=== PATIENT | male | born 1955 | race African-American/Black ===

== ENCOUNTER 2017-05-23 08:14 | Inpatient (IN) | payer MEDICARE, OTHER ==
[~2017-05-23] VITALS: Ht 167.6 cm; Wt 91.6 kg
[~2017-05-23 08:14] MED LIST: ACET-3161 PO; ALBUTEROL; ATEN50TA PO; Amiodarone PO; CLOP75TA2 PO; DIGO125T82 PO; FLUT1DIS3 IH; FURO80TA3 PO; HYDR25TA PO; IBUP-1510 PO; IPATROPIUM; Isosorbide PO; LEVO500T15 PO; LISI-604 PO; METO5TAB69 PO; OMEP20TA80 PO; P20 PO; PENT400T2 PO; Potassium PO; Proair HFA INH; SIMV40TA5 PO; SPIR25TA4 PO; TRAM50TA3 PO; ZOLP10TA2 PO; [UNRECOGNIZED DRUG - OTHER]; [UNRECOGNIZED DRUG - OTHER] NEB
[2017-05-23 13:59] VITALS: BP 92/55
[2017-05-23] MEDS ORDERED: ELIQUIS PO (14:07)
[2017-05-23] MEDS ORDERED: BREO (14:07)
[2017-05-23] MEDS ORDERED: [UNRECOGNIZED DRUG - OTHER] INH (14:07)
[2017-05-23] MEDS ORDERED: RANI150T7 PO (14:07)
[2017-05-23] MEDS ORDERED: ALLO300T2 PO (14:07)
[2017-05-23] MEDS ORDERED: METO-298 PO (14:07)
[2017-05-23 14:17] VITALS: BP 92/55
[2017-05-23] MEDS ORDERED: SODIUM CHLORIDE 0.9% 250 ML IV ONE (14:45)
[2017-05-23] MEDS ORDERED: UMEC62.5 IH (15:11)
[2017-05-23] MEDS ORDERED: [UNRECOGNIZED DRUG - OTHER] PO (15:11)
[2017-05-23] MEDS ORDERED: isosorbide dinitrate PO (15:11)
[2017-05-23] MEDS ORDERED: BREO INH (15:11)
[2017-05-23] MEDS: PENTOXIFYLLINE 400MG TABLET PO SCH (16:26)
[2017-05-23] MEDS: TRAMADOL 50MG TABLET PO PRN ×2 (16:28→21:10)
[2017-05-23] MEDS: APIXABAN 5 MG TABLET PO SCH (16:28)
[2017-05-23 16:45] VITALS: BP 90/53
[2017-05-23] MEDS ORDERED: ELIQUIS 5 MG PO SCH (17:00)
[2017-05-23] MEDS ORDERED: MEDICATION NOT ON FORMULARY EA (Ranitidine Hcl 1 TAB) PO SCH (17:00)
[2017-05-23] MEDS: DIGOXIN 125MCG TABLET PO SCH (17:06)
[2017-05-23 17:48] LABS: BASOPHILS % 0.6 % (0.0-2.0); EOSINOPHILS % 2.5 % (0.0-5.0); HEMATOCRIT. 42.1 % (42.0-52.0); HEMOGLOBIN. 13.2 g/dL (14.0-18.0); LYMPHOCYTES % 25.3 % (20.0-50.0); MEAN CORPUSCULAR HEMOGLOBIN 22.5 pg (28.0-32.0); MEAN CORPUSCULAR VOLUME 71.8 fL (80.0-94.0); MONOCYTES % 13.8 % (2.0-8.0); NEUTROPHILS % 57.8 % (40.0-76.0); PLATELET 134 x1000/uL (130-400); RED BLOOD CELL COUNT 5.87 mill/uL (4.7-6.1); RED CELL DISTRIBUTION WIDTH 17.7 % (11.6-14.6)
[2017-05-23 19:39] VITALS: BP 91/53
[2017-05-23] MEDS: FAMOTIDINE 20MG TABLET PO SCH (21:10)
[2017-05-24] VITALS (7 sets, daily range): BP systolic 88–108; BP diastolic 50–69
[2017-05-24] MEDS: TRAMADOL 50MG TABLET PO PRN ×3 (04:08→18:02)
[2017-05-24 06:20] LABS: HEMATOCRIT. 42.4 % (42.0-52.0); HEMOGLOBIN. 13.3 g/dL (14.0-18.0); MEAN CORPUSCULAR HEMOGLOBIN 22.8 pg (28.0-32.0); MEAN CORPUSCULAR VOLUME 72.7 fL (80.0-94.0); MEAN PLATELET VOLUME 10.5 fl (7.4-10.4); PLATELET 143 x1000/uL (130-400); RED BLOOD CELL COUNT 5.84 mill/uL (4.7-6.1)
[2017-05-24 06:48] LABS: CHLORIDE 91 mEq/L (98-107)
[2017-05-24 06:54] LABS: CARBON DIOXIDE 31 mEq/L (21-32); PHOSPHORUS 3.6 mg/dL (2.5-4.9)
[2017-05-24] MEDS: METOPROLOL TARTRATE 25MG TABLET PO SCH ×2 (08:09→21:00)
[2017-05-24] MEDS: SPIRONOLACTONE 25MG TABLET PO SCH (08:09)
[2017-05-24] MEDS ORDERED: MEDICATION NOT ON FORMULARY EA (Metoprolol Succinate 1 TAB) PO SCH (09:00)
[2017-05-24] MEDS ORDERED: BREO INH SCH (09:00)
[2017-05-24] MEDS ORDERED: ALLOPURINOL 300 MG TABLET PO SCH (09:00)
[2017-05-24] MEDS ORDERED: ELIQUIS 5 MG PO SCH (09:00)
[2017-05-24] MEDS: PENTOXIFYLLINE 400MG TABLET PO SCH ×3 (10:05→18:00)
[2017-05-24] MEDS: FLUTICASONE/VILANTEROL 200-25 BLST.W.DEV ORI SCH (10:05)
[2017-05-24] MEDS: CLOPIDOGREL 75MG TABLET PO SCH (10:06)
[2017-05-24] MEDS: APIXABAN 5 MG TABLET PO SCH ×2 (10:07→18:02)
[2017-05-24] MEDS: ONDANSETRON HCL 4MG/2ML VIAL IV PRN (14:52)
[2017-05-24] MEDS: MECLIZINE 25MG TABLET PO PRN (14:52)
[2017-05-24 16:38] LABS: NUCLEATED RED BLOOD CELLS 1 /100 WBC; PLATELET ESTIMATE NORMAL
[2017-05-24] MEDS: DIGOXIN 125MCG TABLET PO SCH (18:00)
[2017-05-24] MEDS: FAMOTIDINE 20MG TABLET PO SCH (21:20)
[2017-05-25] VITALS (7 sets, daily range): BP systolic 95–117; BP diastolic 47–78
[2017-05-25] MEDS: TRAMADOL 50MG TABLET PO PRN ×3 (00:57→12:54)
[2017-05-25 07:04] LABS: HEMATOCRIT. 41.1 % (42.0-52.0); HEMOGLOBIN. 12.9 g/dL (14.0-18.0); MEAN CORPUSCULAR HEMOGLOBIN 22.6 pg (28.0-32.0); RED CELL DISTRIBUTION WIDTH 17.5 % (11.6-14.6)
[2017-05-25] MEDS: METOPROLOL TARTRATE 25MG TABLET PO SCH ×2 (09:00→21:20)
[2017-05-25] MEDS: SPIRONOLACTONE 25MG TABLET PO SCH (09:00)
[2017-05-25] MEDS: FLUTICASONE/VILANTEROL 200-25 BLST.W.DEV ORI SCH (09:36)
[2017-05-25] MEDS: ALLOPURINOL 300 MG TABLET PO SCH (09:37)
[2017-05-25] MEDS: APIXABAN 5 MG TABLET PO SCH ×2 (09:37→17:15)
[2017-05-25] MEDS: PENTOXIFYLLINE 400MG TABLET PO SCH ×3 (09:37→17:15)
[2017-05-25] MEDS: CLOPIDOGREL 75MG TABLET PO SCH (09:38)
[2017-05-25 14:18] LABS: MEAN PLATELET VOLUME 10.9 fl (7.4-10.4); PLATELET 143 x1000/uL (130-400)
[2017-05-25] MEDS: ONDANSETRON HCL 4MG/2ML VIAL IV PRN (14:40)
[2017-05-25] MEDS: MECLIZINE 25MG TABLET PO PRN (14:40)
[2017-05-25] MEDS: DIGOXIN 125MCG TABLET PO SCH (17:15)
[2017-05-25] MEDS: FAMOTIDINE 20MG TABLET PO SCH (21:19)
[2017-05-26] VITALS: BP 112/72
[2017-05-26 04:00] VITALS: BP 114/69
[2017-05-26 06:14] LABS: HEMATOCRIT. 39.1 % (42.0-52.0); HEMOGLOBIN. 12.2 g/dL (14.0-18.0); MEAN CORPUSCULAR HEMOGLOBIN 22.7 pg (28.0-32.0); MEAN CORPUSCULAR VOLUME 72.6 fL (80.0-94.0); RED BLOOD CELL COUNT 5.38 mill/uL (4.7-6.1); RED CELL DISTRIBUTION WIDTH 17.9 % (11.6-14.6)
[2017-05-26 08:00] VITALS: BP 101/55
[2017-05-26] MEDS: CLOPIDOGREL 75MG TABLET PO SCH (08:22)
[2017-05-26] MEDS: TRAMADOL 50MG TABLET PO PRN ×3 (08:22→22:50)
[2017-05-26] MEDS: ALLOPURINOL 300 MG TABLET PO SCH (08:22)
[2017-05-26] MEDS: FLUTICASONE/VILANTEROL 200-25 BLST.W.DEV ORI SCH (08:23)
[2017-05-26] MEDS: PENTOXIFYLLINE 400MG TABLET PO SCH ×3 (08:23→17:12)
[2017-05-26] MEDS: SPIRONOLACTONE 25MG TABLET PO SCH ×2 (08:23→13:41)
[2017-05-26] MEDS: APIXABAN 5 MG TABLET PO SCH ×2 (08:23→17:12)
[2017-05-26] MEDS: METOPROLOL TARTRATE 25MG TABLET PO SCH ×2 (08:24→21:00)
[2017-05-26 11:05] LABS: PLATELET ESTIMATE SLIGHTLY DECREASED
[2017-05-26 11:06] LABS: MEAN PLATELET VOLUME 10.7 fl (7.4-10.4); PLATELET 120 x1000/uL (130-400)
[2017-05-26 12:00] VITALS: BP 108/68
[2017-05-26 16:00] VITALS: BP 102/55
[2017-05-26] MEDS: DIGOXIN 125MCG TABLET PO SCH (17:12)
[2017-05-26 20:00] VITALS: BP 134/71
[2017-05-26] MEDS: FAMOTIDINE 20MG TABLET PO SCH (21:03)
[2017-05-27] VITALS: BP 116/60
[2017-05-27 04:00] VITALS: BP 137/67
[2017-05-27] MEDS: TRAMADOL 50MG TABLET PO PRN ×2 (06:03→23:39)
[2017-05-27 07:28] LABS: HEMOGLOBIN. 11.6 g/dL (14.0-18.0); MEAN CORPUSCULAR HEMOGLOBIN 22.6 pg (28.0-32.0); MEAN CORPUSCULAR VOLUME 71.8 fL (80.0-94.0); MEAN PLATELET VOLUME 11.3 fl (7.4-10.4); PLATELET 116 x1000/uL (130-400); RED BLOOD CELL COUNT 5.15 mill/uL (4.7-6.1)
[2017-05-27 08:00] VITALS: BP 117/76
[2017-05-27] MEDS: SPIRONOLACTONE 25MG TABLET PO SCH (08:49)
[2017-05-27] MEDS: FAMOTIDINE 20MG TABLET PO SCH ×2 (08:49→21:41)
[2017-05-27] MEDS: FLUTICASONE/VILANTEROL 200-25 BLST.W.DEV ORI SCH (08:49)
[2017-05-27] MEDS: APIXABAN 5 MG TABLET PO SCH ×2 (08:49→17:58)
[2017-05-27] MEDS: ALLOPURINOL 300 MG TABLET PO SCH (08:49)
[2017-05-27] MEDS: PENTOXIFYLLINE 400MG TABLET PO SCH ×3 (08:50→17:58)
[2017-05-27] MEDS: METOPROLOL TARTRATE 25MG TABLET PO SCH ×2 (08:50→21:00)
[2017-05-27] MEDS: CLOPIDOGREL 75MG TABLET PO SCH (08:50)
[2017-05-27 12:00] VITALS: BP 96/54
[2017-05-27 13:16] LABS: PLATELET ESTIMATE DECREASED
[2017-05-27 16:00] VITALS: BP 112/66
[2017-05-27] MEDS: DIGOXIN 125MCG TABLET PO SCH (17:58)
[2017-05-27] MEDS ORDERED: UMECLIDINIUM BROMIDE 1 INH BLST.W.DEV IH SCH (18:30)
[2017-05-27 20:00] VITALS: BP 105/64
[2017-05-28] VITALS: BP 135/98
[2017-05-28 04:00] VITALS: BP 112/80
[2017-05-28 07:43] VITALS: BP 115/71
[2017-05-28] MEDS: IPRATROPIUM BROMIDE (0.02%) 0.5MG/2.5ML NEB HHN SCH ×4 (07:52→20:33)
[2017-05-28] MEDS: FAMOTIDINE 20MG TABLET PO SCH (09:44)
[2017-05-28] MEDS: PENTOXIFYLLINE 400MG TABLET PO SCH ×3 (09:44→18:26)
[2017-05-28] MEDS: SPIRONOLACTONE 25MG TABLET PO SCH (09:44)
[2017-05-28] MEDS: CLOPIDOGREL 75MG TABLET PO SCH (09:44)
[2017-05-28] MEDS: APIXABAN 5 MG TABLET PO SCH ×2 (09:44→18:27)
[2017-05-28] MEDS: ALLOPURINOL 300 MG TABLET PO SCH (09:45)
[2017-05-28] MEDS: METOPROLOL TARTRATE 25MG TABLET PO SCH (09:52)
[2017-05-28] MEDS: TRAMADOL 50MG TABLET PO PRN ×2 (09:54→15:24)
[2017-05-28 12:00] VITALS: BP 118/81
[2017-05-28 16:40] LABS: HEMATOCRIT. 37.1 % (42.0-52.0); HEMOGLOBIN. 11.7 g/dL (14.0-18.0); MEAN CORPUSCULAR HEMOGLOBIN 22.6 pg (28.0-32.0); MEAN CORPUSCULAR VOLUME 71.5 fL (80.0-94.0); MEAN PLATELET VOLUME 11.8 fl (7.4-10.4); PLATELET 116 x1000/uL (130-400); RED CELL DISTRIBUTION WIDTH 17.9 % (11.6-14.6)
[2017-05-28] MEDS: FLUTICASONE/VILANTEROL 200-25 BLST.W.DEV ORI SCH (17:04)
[2017-05-28 17:05] LABS: PLATELET ESTIMATE DECREASED
[2017-05-28] MEDS: DIGOXIN 125MCG TABLET PO SCH (18:26)
[2017-05-28 19:56] VITALS: BP 114/64
[2017-05-28] MEDS ORDERED: ASPI-1159 PO (20:38)
[2017-05-28] MEDS ORDERED: LIP40 PO (20:38)
[2017-05-28 20:39] VITALS: BP 114/64
[2017-05-29] MEDS ORDERED: ALLOPURINOL 300 MG TABLET PO SCH (09:00)
== END 2017-05-28 21:40 | disposition home or self-care (01) | DRG 683 ==
LOC: CCL 08:14 → 6WST 08:15
PROVIDERS: ADMIT Specialist; ATTEND Specialist
DX: N17.9 Acute kidney failure, unspecified (principal); I13.0 Hypertensive heart and chronic kidney disease with heart failure and stage 1 through stage 4 chronic kidney disease, or unspecified chronic kidney disease; I48.92 Unspecified atrial flutter; I50.22 Chronic systolic (congestive) heart failure; I73.9 Peripheral vascular disease, unspecified; D17.9 Benign lipomatous neoplasm, unspecified; E04.2 Nontoxic multinodular goiter; E78.5 Hyperlipidemia, unspecified; G47.33 Obstructive sleep apnea (adult) (pediatric); I25.10 Atherosclerotic heart disease of native coronary artery without angina pectoris; I25.5 Ischemic cardiomyopathy; I48.0 Paroxysmal atrial fibrillation; K40.90 Unilateral inguinal hernia, without obstruction or gangrene, not specified as recurrent; M10.9 Gout, unspecified; M19.90 Unspecified osteoarthritis, unspecified site; M47.812 Spondylosis without myelopathy or radiculopathy, cervical region; M47.816 Spondylosis without myelopathy or radiculopathy, lumbar region; M54.30 Sciatica, unspecified side; N18.3 Chronic kidney disease, stage 3 (moderate); N43.3 Hydrocele, unspecified; Z53.9 Procedure and treatment not carried out, unspecified reason; Z79.01 Long term (current) use of anticoagulants; I25.2 Old myocardial infarction; Z79.02 Long term (current) use of antithrombotics/antiplatelets; Z79.82 Long term (current) use of aspirin; Z79.899 Other long term (current) drug therapy; Z87.891 Personal history of nicotine dependence; Z95.5 Presence of coronary angioplasty implant and graft; Z95.810 Presence of automatic (implantable) cardiac defibrillator; Z98.62 Peripheral vascular angioplasty status; J44.9 Chronic obstructive pulmonary disease, unspecified
CPT/HCPCS: 36415; 80048; 80053; 82570; 83735; 83935; 84100; 84300; 84550; 85025; 93306; J2405; J7050; J8597

== ENCOUNTER 2018-05-01 15:47 | Inpatient (IN) | payer MEDICARE, OTHER ==
[2018-05-01] VITALS (7 sets, daily range): BP systolic 102–127; BP diastolic 60–85
[~2018-05-01] VITALS: Ht 167.6 cm; Wt 98.0 kg
[~2018-05-01 15:47] MED LIST changes: -ACET-3161 PO; -ALBUTEROL; +ALLO300T2 PO; +ASPI-1159 PO; -ATEN50TA PO; -Amiodarone PO; +BREO INH; +CLOP75TA16 PO; -CLOP75TA2 PO; +ELIQUIS PO; -FLUT1DIS3 IH; -FURO80TA3 PO; -HYDR25TA PO; -IBUP-1510 PO; -IPATROPIUM; -Isosorbide PO; -LEVO500T15 PO; +LIP40 PO; -LISI-604 PO; -METO5TAB69 PO; -OMEP20TA80 PO; -P20 PO; +PENT400T11 PO; -PENT400T2 PO; -Potassium PO; -Proair HFA INH; +RANI150T7 PO; -SIMV40TA5 PO; -SPIR25TA4 PO; +SPIR25TA6 PO; +UMEC62.5 IH; -ZOLP10TA2 PO; -[UNRECOGNIZED DRUG - OTHER]; -[UNRECOGNIZED DRUG - OTHER] NEB; +[UNRECOGNIZED DRUG - OTHER] PO
[2018-05-01 16:57] LABS: BG CARBOXYHEMOGLOBIN 1.2 % (0.5-1.5); BG DEOXYHEMOGLOBIN 3.1 % (0.0-5.0); BG HCO3 ACT 27.6 mmol/L (22.0-26.0); BG METHEMOGLOBIN 0.1 % (0.0-1.5); BG OXYGEN SATURATION 96.9 % (92.0-98.5); BG OXYHEMOGLOBIN 95.6 % (94.0-97.0); BG PCO2 37.6 mmHg (35.0-45.0); BG PH 7.483 (7.350-7.450); BG PO2 86.9 mmHg (75.0-100.0); BG SAMPLE SITE RIGHT RADIAL; BG TOTAL HEMOGLOBIN 10.7 g/dL (12.0-18.0); BG VENT MODE ROOM AIR
[2018-05-01] MEDS ORDERED: DOBUTAMINE 250MG PREMIX 250 ML IV PRN (17:00)
[2018-05-01] MEDS ORDERED: FUROSEMIDE 100MG/10ML VIAL IVP NR (17:00)
[2018-05-01] MEDS: DIGOXIN 125MCG TABLET PO SCH (18:10)
[2018-05-01] MEDS: SPIRONOLACTONE 25MG TABLET PO SCH (18:10)
[2018-05-01] MEDS: TRAMADOL 50MG TABLET PO PRN ×2 (18:11→23:58)
[2018-05-01] MEDS: AMIODARONE HCL 200 MG TABLET PO SCH (18:11)
[2018-05-01] MEDS: DOBUTAMINE HCL 250 MG in DEXT 5% WATER 230 ML IV SCH (18:21)
[2018-05-01 18:24] LABS: HEMATOCRIT. 31.9 % (42.0-52.0); HEMOGLOBIN. 9.8 g/dL (14.0-18.0); MEAN CORPUSCULAR VOLUME 68.6 fL (80.0-94.0); MEAN PLATELET VOLUME 9.1 fl (7.4-10.4); PLATELET 172 x1000/uL (130-400); RED BLOOD CELL COUNT 4.65 mill/uL (4.7-6.1); RED CELL DISTRIBUTION WIDTH 22.1 % (11.6-14.6)
[2018-05-01 18:25] LABS: CHLORIDE 97 mEq/L (98-107)
[2018-05-01 18:51] LABS: PLATELET ESTIMATE NORMAL
[2018-05-01] MEDS ORDERED: FUROSEMIDE 80MG TABLET PO SCH (20:00)
[2018-05-01] MEDS: FAMOTIDINE 20MG TABLET PO SCH (20:12)
[2018-05-01] MEDS: ATORVASTATIN CALCIUM 40MG TABLET PO SCH (20:12)
[2018-05-01] MEDS ORDERED: VALSARTAN PO SCH (21:00)
[2018-05-01] MEDS ORDERED: SACUBITRIL PO SCH (21:00)
[2018-05-01] MEDS: HYDROCODONE/ACETAMINOPHEN 10/325MG TABLET PO PRN (21:03)
[2018-05-01] MEDS: FLUTICASONE/VILANTEROL 200-25 BLST.W.DEV ORI SCH (21:14)
[2018-05-01] MEDS: UMECLIDINIUM BROMIDE 1 INH BLST.W.DEV IH SCH (21:14)
[2018-05-01] MEDS: METOPROLOL TARTRATE 50MG TABLET PO SCH (21:24)
[2018-05-01] MEDS: CYCLOBENZAPRINE 10MG TABLET PO PRN (22:48)
[2018-05-01] MEDS: DIPHENHYDRAMINE 50MG/ML VIAL IV PRN (23:39)
[2018-05-02] VITALS (16 sets, daily range): BP systolic 97–114; BP diastolic 47–80
[2018-05-02] MEDS: DOBUTAMINE HCL 250 MG in DEXT 5% WATER 230 ML IV SCH ×2 (05:07→18:40)
[2018-05-02] MEDS: METOPROLOL TARTRATE 50MG TABLET PO SCH ×3 (05:57→21:34)
[2018-05-02 07:08] LABS: HEMOGLOBIN. 9.3 g/dL (14.0-18.0); MEAN CORPUSCULAR HEMOGLOBIN 21.2 pg (28.0-32.0); MEAN CORPUSCULAR VOLUME 68.6 fL (80.0-94.0); MEAN PLATELET VOLUME 9.1 fl (7.4-10.4); PLATELET 154 x1000/uL (130-400); RED BLOOD CELL COUNT 4.38 mill/uL (4.7-6.1); RED CELL DISTRIBUTION WIDTH 21.8 % (11.6-14.6)
[2018-05-02] MEDS: APIXABAN 5 MG TABLET PO SCH ×2 (08:14→20:18)
[2018-05-02] MEDS: AMIODARONE HCL 200 MG TABLET PO SCH (08:15)
[2018-05-02] MEDS: ASPIRIN 81MG TABLET PO SCH (08:15)
[2018-05-02] MEDS: FAMOTIDINE 20MG TABLET PO SCH (08:16)
[2018-05-02] MEDS: FUROSEMIDE 100MG/10ML VIAL IV SCH ×2 (08:16→17:10)
[2018-05-02] MEDS: FLUTICASONE/VILANTEROL 200-25 BLST.W.DEV ORI SCH ×2 (08:17→09:00)
[2018-05-02] MEDS: UMECLIDINIUM BROMIDE 1 INH BLST.W.DEV IH SCH ×2 (08:17→09:00)
[2018-05-02] MEDS: CYCLOBENZAPRINE 10MG TABLET PO PRN (08:22)
[2018-05-02] MEDS ORDERED: FUROSEMIDE 80MG TABLET PO SCH (09:00)
[2018-05-02] MEDS ORDERED: ALLOPURINOL 100 MG TABLET PO SCH (09:00)
[2018-05-02] MEDS: DIPHENHYDRAMINE 50MG/ML VIAL IV PRN (09:43)
[2018-05-02] MEDS: SPIRONOLACTONE 25MG TABLET PO SCH (11:32)
[2018-05-02] MEDS: HYDROCODONE/ACETAMINOPHEN 10/325MG TABLET PO PRN ×2 (11:32→20:18)
[2018-05-02] MEDS: DIGOXIN 125MCG TABLET PO SCH (17:10)
[2018-05-02] MEDS: GUAIFENESIN-DM 200MG-20MG/10ML UDC PO PRN ×2 (17:10→21:08)
[2018-05-02] MEDS: ATORVASTATIN CALCIUM 40MG TABLET PO SCH (20:19)
[2018-05-02] MEDS: ENTRESTO 49MG/51MG PO SCH (20:19)
[2018-05-02] MEDS: TEMAZEPAM 15MG CAPSULE PO PRN (23:43)
[2018-05-03] VITALS (13 sets, daily range): BP systolic 85–104; BP diastolic 35–65
[2018-05-03] MEDS: METOPROLOL TARTRATE 50MG TABLET PO SCH ×3 (06:00→21:24)
[2018-05-03] MEDS: FUROSEMIDE 100MG/10ML VIAL IV SCH ×2 (06:04→17:19)
[2018-05-03] MEDS: DOBUTAMINE HCL 250 MG in DEXT 5% WATER 230 ML IV SCH ×2 (06:08→19:44)
[2018-05-03 06:59] LABS: HEMATOCRIT. 28.9 % (42.0-52.0); MEAN CORPUSCULAR HEMOGLOBIN 21.5 pg (28.0-32.0); MEAN CORPUSCULAR VOLUME 68.9 fL (80.0-94.0); MEAN PLATELET VOLUME 8.9 fl (7.4-10.4); PLATELET 146 x1000/uL (130-400); RED CELL DISTRIBUTION WIDTH 21.4 % (11.6-14.6)
[2018-05-03 07:16] LABS: PLATELET ESTIMATE NORMAL
[2018-05-03] MEDS: FLUTICASONE/VILANTEROL 200-25 BLST.W.DEV ORI SCH (08:13)
[2018-05-03] MEDS: UMECLIDINIUM BROMIDE 1 INH BLST.W.DEV IH SCH (08:14)
[2018-05-03] MEDS: APIXABAN 5 MG TABLET PO SCH ×2 (08:15→20:22)
[2018-05-03] MEDS: FAMOTIDINE 20MG TABLET PO SCH (08:15)
[2018-05-03] MEDS: AMIODARONE HCL 200 MG TABLET PO SCH (08:15)
[2018-05-03] MEDS: ASPIRIN 81MG TABLET PO SCH (08:16)
[2018-05-03] MEDS: ALLOPURINOL 100 MG TABLET PO SCH (08:16)
[2018-05-03] MEDS: ENTRESTO 49MG/51MG PO SCH ×2 (08:18→20:22)
[2018-05-03 08:49] LABS: PLATELET ESTIMATE NORMAL
[2018-05-03] MEDS: SPIRONOLACTONE 25MG TABLET PO SCH ×2 (09:00→11:10)
[2018-05-03] MEDS: HYDROCODONE/ACETAMINOPHEN 10/325MG TABLET PO PRN ×2 (12:01→21:18)
[2018-05-03] MEDS: GUAIFENESIN-DM 200MG-20MG/10ML UDC PO PRN ×2 (12:02→19:43)
[2018-05-03] MEDS: ALBUTEROL (0.083%) 2.5MG/3ML NEB HHN PRN ×2 (13:23→20:35)
[2018-05-03] MEDS: DIGOXIN 125MCG TABLET PO SCH (17:19)
[2018-05-03] MEDS: TRAMADOL 50MG TABLET PO PRN (19:53)
[2018-05-03] MEDS: ATORVASTATIN CALCIUM 40MG TABLET PO SCH (20:22)
[2018-05-03] MEDS: CYCLOBENZAPRINE 10MG TABLET PO PRN (20:22)
[2018-05-03] MEDS: TEMAZEPAM 15MG CAPSULE PO PRN (23:01)
[2018-05-04] VITALS (13 sets, daily range): BP systolic 75–107; BP diastolic 39–68
[2018-05-04] MEDS: FUROSEMIDE 100MG/10ML VIAL IV SCH (05:49)
[2018-05-04] MEDS: DOBUTAMINE HCL 250 MG in DEXT 5% WATER 230 ML IV SCH ×2 (05:49→20:09)
[2018-05-04] MEDS: GUAIFENESIN-DM 200MG-20MG/10ML UDC PO PRN ×2 (05:49→20:03)
[2018-05-04] MEDS: METOPROLOL TARTRATE 50MG TABLET PO SCH ×3 (05:56→21:27)
[2018-05-04 06:09] LABS: HEMOGLOBIN. 9.2 g/dL (14.0-18.0); MEAN CORPUSCULAR HEMOGLOBIN 21.2 pg (28.0-32.0); MEAN PLATELET VOLUME 9.6 fl (7.4-10.4); PLATELET 156 x1000/uL (130-400); RED BLOOD CELL COUNT 4.34 mill/uL (4.7-6.1)
[2018-05-04] MEDS: ENTRESTO 49MG/51MG PO SCH ×2 (08:20→20:03)
[2018-05-04] MEDS: UMECLIDINIUM BROMIDE 1 INH BLST.W.DEV IH SCH (08:21)
[2018-05-04] MEDS: FLUTICASONE/VILANTEROL 200-25 BLST.W.DEV ORI SCH (08:21)
[2018-05-04] MEDS: ASPIRIN 81MG TABLET PO SCH (08:21)
[2018-05-04] MEDS: FAMOTIDINE 20MG TABLET PO SCH (08:22)
[2018-05-04] MEDS: AMIODARONE HCL 200 MG TABLET PO SCH (08:22)
[2018-05-04] MEDS: ALLOPURINOL 100 MG TABLET PO SCH (08:22)
[2018-05-04] MEDS: APIXABAN 5 MG TABLET PO SCH ×2 (08:22→20:03)
[2018-05-04 08:48] LABS: PLATELET ESTIMATE NORMAL
[2018-05-04] MEDS: SPIRONOLACTONE 25MG TABLET PO SCH (09:00)
[2018-05-04 09:07] LABS: MICROALBUMIN RANDOM URINE 3.5 ug/mL (Not Estab.)
[2018-05-04] MEDS: TRAMADOL 50MG TABLET PO PRN (09:21)
[2018-05-04] MEDS: HYDROCODONE/ACETAMINOPHEN 10/325MG TABLET PO PRN (13:47)
[2018-05-04] MEDS ORDERED: SODIUM CHLORIDE 0.9% 250 ML IV ONE (15:00)
[2018-05-04] MEDS ORDERED: HYDROMORPHONE HCL/PF 2MG/ML CPJ IV PRN (15:30)
[2018-05-04] MEDS ORDERED: HYDROMORPHONE HCL 4MG TABLET PO PRN (16:15)
[2018-05-04] MEDS: DIGOXIN 125MCG TABLET PO SCH (18:09)
[2018-05-04] MEDS: CYCLOBENZAPRINE 10MG TABLET PO PRN (20:03)
[2018-05-04] MEDS: ATORVASTATIN CALCIUM 40MG TABLET PO SCH (20:03)
[2018-05-04] MEDS: TEMAZEPAM 15MG CAPSULE PO PRN (21:46)
[2018-05-05] VITALS (12 sets, daily range): BP systolic 83–109; BP diastolic 38–57
[2018-05-05] MEDS: ALBUTEROL (0.083%) 2.5MG/3ML NEB HHN PRN ×4 (00:31→16:20)
[2018-05-05] MEDS: METOPROLOL TARTRATE 50MG TABLET PO SCH ×3 (06:00→21:01)
[2018-05-05 06:19] LABS: HEMATOCRIT. 29.9 % (42.0-52.0); HEMOGLOBIN. 9.2 g/dL (14.0-18.0); MEAN CORPUSCULAR HEMOGLOBIN 21.3 pg (28.0-32.0); MEAN CORPUSCULAR VOLUME 69.1 fL (80.0-94.0); MEAN PLATELET VOLUME 9.1 fl (7.4-10.4); PLATELET 162 x1000/uL (130-400); RED BLOOD CELL COUNT 4.33 mill/uL (4.7-6.1); RED CELL DISTRIBUTION WIDTH 22.4 % (11.6-14.6)
[2018-05-05] MEDS: APIXABAN 5 MG TABLET PO SCH ×2 (08:05→21:00)
[2018-05-05] MEDS: AMIODARONE HCL 200 MG TABLET PO SCH (08:05)
[2018-05-05] MEDS: ALLOPURINOL 100 MG TABLET PO SCH (08:05)
[2018-05-05] MEDS: ASPIRIN 81MG TABLET PO SCH (08:05)
[2018-05-05] MEDS: FAMOTIDINE 20MG TABLET PO SCH (08:05)
[2018-05-05] MEDS: FLUTICASONE/VILANTEROL 200-25 BLST.W.DEV ORI SCH (08:06)
[2018-05-05] MEDS: ENTRESTO 49MG/51MG PO SCH ×2 (08:06→21:01)
[2018-05-05] MEDS: UMECLIDINIUM BROMIDE 1 INH BLST.W.DEV IH SCH (08:06)
[2018-05-05] MEDS: SPIRONOLACTONE 25MG TABLET PO SCH (08:07)
[2018-05-05] MEDS: GUAIFENESIN-DM 200MG-20MG/10ML UDC PO PRN (08:26)
[2018-05-05] MEDS: DOBUTAMINE HCL 250 MG in DEXT 5% WATER 230 ML IV SCH (09:23)
[2018-05-05 13:42] LABS: PLATELET ESTIMATE NORMAL
[2018-05-05] MEDS: TRAMADOL 50MG TABLET PO PRN (16:08)
[2018-05-05] MEDS: DIGOXIN 125MCG TABLET PO SCH (17:20)
[2018-05-05] MEDS ORDERED: [UNRECOGNIZED DRUG - OTHER] TOP PRN (20:15)
[2018-05-05] MEDS: ATORVASTATIN CALCIUM 40MG TABLET PO SCH (21:00)
[2018-05-05] MEDS: MORPHINE SULFATE 15MG TABLET SR PO SCH (21:01)
[2018-05-05] MEDS: CYCLOBENZAPRINE 10MG TABLET PO PRN (23:03)
[2018-05-05] MEDS: TEMAZEPAM 15MG CAPSULE PO PRN (23:32)
[2018-05-06] VITALS (17 sets, daily range): BP systolic 92–129; BP diastolic 50–66
[2018-05-06] MEDS: TEMAZEPAM 15MG CAPSULE PO PRN (00:27)
[2018-05-06] MEDS: TRAMADOL 50MG TABLET PO PRN (02:14)
[2018-05-06] MEDS: ALBUTEROL (0.083%) 2.5MG/3ML NEB HHN PRN (04:34)
[2018-05-06] MEDS: METOPROLOL TARTRATE 50MG TABLET PO SCH ×3 (06:00→22:00)
[2018-05-06 06:26] LABS: HEMATOCRIT. 32.2 % (42.0-52.0); HEMOGLOBIN. 9.9 g/dL (14.0-18.0); MEAN CORPUSCULAR HEMOGLOBIN 21.1 pg (28.0-32.0); MEAN CORPUSCULAR VOLUME 68.7 fL (80.0-94.0); PLATELET 177 x1000/uL (130-400); RED BLOOD CELL COUNT 4.68 mill/uL (4.7-6.1)
[2018-05-06] MEDS: SPIRONOLACTONE 25MG TABLET PO SCH (08:53)
[2018-05-06] MEDS: UMECLIDINIUM BROMIDE 1 INH BLST.W.DEV IH SCH (08:53)
[2018-05-06] MEDS: ASPIRIN 81MG TABLET PO SCH (08:53)
[2018-05-06] MEDS: AMIODARONE HCL 200 MG TABLET PO SCH (08:53)
[2018-05-06] MEDS: FAMOTIDINE 20MG TABLET PO SCH (08:53)
[2018-05-06] MEDS: APIXABAN 5 MG TABLET PO SCH ×2 (08:53→20:40)
[2018-05-06] MEDS: FLUTICASONE/VILANTEROL 200-25 BLST.W.DEV ORI SCH (08:54)
[2018-05-06] MEDS: ALLOPURINOL 100 MG TABLET PO SCH (08:54)
[2018-05-06] MEDS: MORPHINE SULFATE 15MG TABLET SR PO SCH ×2 (08:56→20:41)
[2018-05-06] MEDS: ENTRESTO 49MG/51MG PO SCH ×2 (09:00→20:41)
[2018-05-06] MEDS: CYCLOBENZAPRINE 10MG TABLET PO PRN (15:51)
[2018-05-06 16:34] LABS: PLATELET ESTIMATE NORMAL
[2018-05-06] MEDS: DIGOXIN 125MCG TABLET PO SCH (16:53)
[2018-05-06] MEDS: AMPICILLIN SOD/SULBACTAM NA 1.5 G in SODIUM CHLORIDE 0.9% 50 ML IV SCH (20:40)
[2018-05-06] MEDS: ATORVASTATIN CALCIUM 40MG TABLET PO SCH (20:40)
[2018-05-06] MEDS: GUAIFENESIN-DM 200MG-20MG/10ML UDC PO PRN (20:41)
[2018-05-06] MEDS: PREDNISONE 20MG TABLET PO SCH (20:44)
[2018-05-07] VITALS (16 sets, daily range): BP systolic 94–131; BP diastolic 37–65
[2018-05-07] MEDS: AMPICILLIN SOD/SULBACTAM NA 1.5 G in SODIUM CHLORIDE 0.9% 50 ML IV SCH ×4 (03:05→20:35)
[2018-05-07] MEDS: METOPROLOL TARTRATE 50MG TABLET PO SCH ×3 (06:00→22:00)
[2018-05-07 07:43] LABS: HEMOGLOBIN. 9.7 g/dL (14.0-18.0); MEAN CORPUSCULAR HEMOGLOBIN 21.2 pg (28.0-32.0); MEAN CORPUSCULAR VOLUME 69.9 fL (80.0-94.0); MEAN PLATELET VOLUME 9.3 fl (7.4-10.4); PLATELET 182 x1000/uL (130-400); RED BLOOD CELL COUNT 4.58 mill/uL (4.7-6.1); RED CELL DISTRIBUTION WIDTH 22.9 % (11.6-14.6)
[2018-05-07] MEDS: ALBUTEROL (0.083%) 2.5MG/3ML NEB HHN PRN ×3 (08:18→14:47)
[2018-05-07] MEDS: APIXABAN 5 MG TABLET PO SCH ×2 (08:48→20:35)
[2018-05-07] MEDS: ASPIRIN 81MG TABLET PO SCH (08:48)
[2018-05-07] MEDS: PREDNISONE 20MG TABLET PO SCH (08:48)
[2018-05-07] MEDS: AMIODARONE HCL 200 MG TABLET PO SCH (08:48)
[2018-05-07] MEDS: FAMOTIDINE 20MG TABLET PO SCH (08:48)
[2018-05-07] MEDS: ALLOPURINOL 100 MG TABLET PO SCH (08:48)
[2018-05-07] MEDS: SPIRONOLACTONE 25MG TABLET PO SCH (08:49)
[2018-05-07] MEDS: FLUTICASONE/VILANTEROL 200-25 BLST.W.DEV ORI SCH (08:50)
[2018-05-07] MEDS: MORPHINE SULFATE 15MG TABLET SR PO SCH ×2 (08:50→20:37)
[2018-05-07] MEDS: UMECLIDINIUM BROMIDE 1 INH BLST.W.DEV IH SCH (08:54)
[2018-05-07] MEDS: ENTRESTO 49MG/51MG PO SCH ×2 (08:55→20:42)
[2018-05-07 09:32] LABS: PLATELET ESTIMATE NORMAL
[2018-05-07] MEDS: FUROSEMIDE 100MG/10ML VIAL IVP SCH (10:24)
[2018-05-07] MEDS: GUAIFENESIN-DM 200MG-20MG/10ML UDC PO PRN (10:24)
[2018-05-07] MEDS: DIGOXIN 125MCG TABLET PO SCH (17:05)
[2018-05-07] MEDS: ATORVASTATIN CALCIUM 40MG TABLET PO SCH (20:35)
[2018-05-08] VITALS (11 sets, daily range): BP systolic 84–110; BP diastolic 48–62
[2018-05-08] MEDS: AMPICILLIN SOD/SULBACTAM NA 1.5 G in SODIUM CHLORIDE 0.9% 50 ML IV SCH ×4 (04:24→22:40)
[2018-05-08] MEDS: METOPROLOL TARTRATE 50MG TABLET PO SCH (06:00)
[2018-05-08 06:16] LABS: HEMATOCRIT. 31.3 % (42.0-52.0); HEMOGLOBIN. 9.5 g/dL (14.0-18.0); MEAN CORPUSCULAR HEMOGLOBIN 21.2 pg (28.0-32.0); MEAN CORPUSCULAR VOLUME 69.9 fL (80.0-94.0); MEAN PLATELET VOLUME 9.3 fl (7.4-10.4); PLATELET 215 x1000/uL (130-400); RED BLOOD CELL COUNT 4.48 mill/uL (4.7-6.1); RED CELL DISTRIBUTION WIDTH 23.4 % (11.6-14.6)
[2018-05-08] MEDS: SPIRONOLACTONE 25MG TABLET PO SCH (09:00)
[2018-05-08] MEDS: FLUTICASONE/VILANTEROL 200-25 BLST.W.DEV ORI SCH (09:16)
[2018-05-08] MEDS: FUROSEMIDE 100MG/10ML VIAL IVP SCH (09:16)
[2018-05-08] MEDS: UMECLIDINIUM BROMIDE 1 INH BLST.W.DEV IH SCH (09:16)
[2018-05-08] MEDS: AMIODARONE HCL 200 MG TABLET PO SCH (09:17)
[2018-05-08] MEDS: FAMOTIDINE 20MG TABLET PO SCH (09:17)
[2018-05-08] MEDS: ASPIRIN 81MG TABLET PO SCH (09:17)
[2018-05-08] MEDS: PREDNISONE 20MG TABLET PO SCH (09:17)
[2018-05-08] MEDS: MORPHINE SULFATE 15MG TABLET SR PO SCH ×2 (09:18→22:11)
[2018-05-08] MEDS: ALLOPURINOL 100 MG TABLET PO SCH (09:20)
[2018-05-08] MEDS: APIXABAN 5 MG TABLET PO SCH ×2 (09:20→22:10)
[2018-05-08] MEDS: ENTRESTO 49MG/51MG PO SCH ×2 (09:22→22:13)
[2018-05-08] MEDS ORDERED: SODIUM CHLORIDE 0.9% 500 ML IV NR (11:15)
[2018-05-08 13:34] LABS: PLATELET ESTIMATE NORMAL
[2018-05-08] MEDS: CARVEDILOL 6.25 MG TABLET PO SCH (21:00)
[2018-05-08] MEDS: ATORVASTATIN CALCIUM 40MG TABLET PO SCH (22:11)
[2018-05-08] MEDS: GUAIFENESIN-DM 200MG-20MG/10ML UDC PO PRN (22:13)
[2018-05-09] VITALS (12 sets, daily range): BP systolic 87–129; BP diastolic 47–93
[2018-05-09] MEDS: GUAIFENESIN-DM 200MG-20MG/10ML UDC PO PRN ×2 (01:24→04:18)
[2018-05-09] MEDS: AMPICILLIN SOD/SULBACTAM NA 1.5 G in SODIUM CHLORIDE 0.9% 50 ML IV SCH ×4 (04:17→21:51)
[2018-05-09 05:27] LABS: HEMATOCRIT. 30.5 % (42.0-52.0); HEMOGLOBIN. 9.3 g/dL (14.0-18.0); MEAN CORPUSCULAR HEMOGLOBIN 21.1 pg (28.0-32.0); MEAN CORPUSCULAR VOLUME 69.2 fL (80.0-94.0); MEAN PLATELET VOLUME 8.9 fl (7.4-10.4); PLATELET 235 x1000/uL (130-400); RED BLOOD CELL COUNT 4.41 mill/uL (4.7-6.1); RED CELL DISTRIBUTION WIDTH 22.6 % (11.6-14.6)
[2018-05-09] MEDS: FLUTICASONE/VILANTEROL 200-25 BLST.W.DEV ORI SCH (08:29)
[2018-05-09] MEDS: UMECLIDINIUM BROMIDE 1 INH BLST.W.DEV IH SCH (08:29)
[2018-05-09] MEDS: ENTRESTO 49MG/51MG PO SCH ×2 (08:30→21:53)
[2018-05-09] MEDS: FAMOTIDINE 20MG TABLET PO SCH (08:31)
[2018-05-09] MEDS: ALLOPURINOL 100 MG TABLET PO SCH (08:31)
[2018-05-09] MEDS: ASPIRIN 81MG TABLET PO SCH (08:31)
[2018-05-09] MEDS: APIXABAN 5 MG TABLET PO SCH ×2 (08:32→21:51)
[2018-05-09] MEDS: PREDNISONE 20MG TABLET PO SCH (08:32)
[2018-05-09] MEDS: MORPHINE SULFATE 15MG TABLET SR PO SCH ×2 (08:32→21:00)
[2018-05-09] MEDS: AMIODARONE HCL 200 MG TABLET PO SCH (08:32)
[2018-05-09] MEDS: FUROSEMIDE 100MG/10ML VIAL IVP SCH (08:33)
[2018-05-09] MEDS: CARVEDILOL 6.25 MG TABLET PO SCH ×2 (08:44→21:00)
[2018-05-09] MEDS ORDERED: SODIUM CHLORIDE 0.9% 250 ML IV NR (11:45)
[2018-05-09 13:54] LABS: PLATELET ESTIMATE NORMAL
[2018-05-09] MEDS: IPRATROPIUM/ALBUTEROL 0.5-3(2.5)MG/3ML NEB HHN PRN ×2 (16:26→21:34)
[2018-05-09 17:27] LABS: T4 FREE 1.31 ng/dL (0.76-1.46)
[2018-05-09] MEDS: ATORVASTATIN CALCIUM 40MG TABLET PO SCH (21:51)
[2018-05-10] VITALS (11 sets, daily range): BP systolic 74–124; BP diastolic 43–75
[2018-05-10] MEDS: AMPICILLIN SOD/SULBACTAM NA 1.5 G in SODIUM CHLORIDE 0.9% 50 ML IV SCH ×4 (04:52→21:28)
[2018-05-10 06:54] LABS: HEMATOCRIT. 30.3 % (42.0-52.0); HEMOGLOBIN. 9.2 g/dL (14.0-18.0); MEAN CORPUSCULAR HEMOGLOBIN 20.9 pg (28.0-32.0); MEAN CORPUSCULAR VOLUME 68.8 fL (80.0-94.0); MEAN PLATELET VOLUME 8.8 fl (7.4-10.4); PLATELET 245 x1000/uL (130-400); RED BLOOD CELL COUNT 4.41 mill/uL (4.7-6.1); RED CELL DISTRIBUTION WIDTH 23.5 % (11.6-14.6)
[2018-05-10 08:22] LABS: DIGOXIN 2.8 ng/mL (0.9-2.0)
[2018-05-10] MEDS: PREDNISONE 20MG TABLET PO SCH (08:46)
[2018-05-10] MEDS: FUROSEMIDE 100MG/10ML VIAL IVP SCH (08:46)
[2018-05-10] MEDS: ALLOPURINOL 100 MG TABLET PO SCH (08:46)
[2018-05-10] MEDS: FAMOTIDINE 20MG TABLET PO SCH (08:46)
[2018-05-10] MEDS: AMIODARONE HCL 200 MG TABLET PO SCH (08:46)
[2018-05-10] MEDS: ASPIRIN 81MG TABLET PO SCH (08:46)
[2018-05-10] MEDS: CARVEDILOL 6.25 MG TABLET PO SCH ×3 (08:47→21:00)
[2018-05-10] MEDS: APIXABAN 5 MG TABLET PO SCH ×2 (08:47→21:00)
[2018-05-10] MEDS: MORPHINE SULFATE 15MG TABLET SR PO SCH ×3 (08:47→21:00)
[2018-05-10] MEDS: ENTRESTO 49MG/51MG PO SCH ×2 (08:48→21:16)
[2018-05-10] MEDS: FLUTICASONE/VILANTEROL 200-25 BLST.W.DEV ORI SCH (09:00)
[2018-05-10] MEDS: UMECLIDINIUM BROMIDE 1 INH BLST.W.DEV IH SCH (09:00)
[2018-05-10 13:08] LABS: PLATELET ESTIMATE NORMAL
[2018-05-10] MEDS ORDERED: LIDOCAINE HCL/PF 1% 10 MG/ML 5ML VIAL ONE (13:57)
[2018-05-10 15:57] LABS: INR 1.4; PROTHROMBIN TIME 14.8 sec (9.4-11.6)
[2018-05-10] MEDS: ATORVASTATIN CALCIUM 40MG TABLET PO SCH (21:16)
[2018-05-10] MEDS: TEMAZEPAM 15MG CAPSULE PO PRN (21:39)
[2018-05-10] MEDS: CYCLOBENZAPRINE 10MG TABLET PO PRN (21:39)
[2018-05-11] VITALS (40 sets, daily range): BP systolic 76–106; BP diastolic 39–62
[2018-05-11] MEDS: GUAIFENESIN/CODEINE 100-10MG/5ML UDC PO PRN ×2 (01:16→08:47)
[2018-05-11 06:25] LABS: HEMATOCRIT. 28.4 % (42.0-52.0); HEMOGLOBIN. 8.9 g/dL (14.0-18.0); MEAN CORPUSCULAR HEMOGLOBIN 21.4 pg (28.0-32.0); MEAN CORPUSCULAR VOLUME 68.6 fL (80.0-94.0); MEAN PLATELET VOLUME 8.9 fl (7.4-10.4); PLATELET 265 x1000/uL (130-400); RED BLOOD CELL COUNT 4.13 mill/uL (4.7-6.1); RED CELL DISTRIBUTION WIDTH 22.7 % (11.6-14.6)
[2018-05-11] MEDS: UMECLIDINIUM BROMIDE 1 INH BLST.W.DEV IH SCH (08:45)
[2018-05-11] MEDS: FUROSEMIDE 100MG/10ML VIAL IVP SCH (08:45)
[2018-05-11] MEDS: ENTRESTO 49MG/51MG PO SCH ×2 (08:45→21:00)
[2018-05-11] MEDS: ALLOPURINOL 100 MG TABLET PO SCH (08:45)
[2018-05-11] MEDS: FLUTICASONE/VILANTEROL 200-25 BLST.W.DEV ORI SCH (08:45)
[2018-05-11] MEDS: APIXABAN 5 MG TABLET PO SCH ×2 (08:46→22:24)
[2018-05-11] MEDS: PREDNISONE 20MG TABLET PO SCH (08:46)
[2018-05-11] MEDS: CARVEDILOL 6.25 MG TABLET PO SCH ×2 (08:46→21:00)
[2018-05-11] MEDS: ASPIRIN 81MG TABLET PO SCH (08:47)
[2018-05-11] MEDS: AMIODARONE HCL 200 MG TABLET PO SCH (08:47)
[2018-05-11] MEDS: FAMOTIDINE 20MG TABLET PO SCH (08:47)
[2018-05-11] MEDS: AMPICILLIN SOD/SULBACTAM NA 1.5 G in SODIUM CHLORIDE 0.9% 50 ML IV SCH ×2 (11:07→22:24)
[2018-05-11] MEDS ORDERED: ALBUMIN HUMAN 25GM/100ML (25%) IV NR (14:30)
[2018-05-11] MEDS: DOPAMINE 400MG PREMIX 250 ML IV PRN (15:25)
[2018-05-11] MEDS ORDERED: ONDANSETRON HCL 4MG TABLET PO PRN (16:00)
[2018-05-11] MEDS: PANTOPRAZOLE SODIUM 40 MG/VIAL IV SCH (18:18)
[2018-05-11] MEDS: ATORVASTATIN CALCIUM 40MG TABLET PO SCH (22:24)
[2018-05-11] MEDS: IPRATROPIUM/ALBUTEROL 0.5-3(2.5)MG/3ML NEB HHN PRN (22:33)
[2018-05-11] MEDS: TEMAZEPAM 15MG CAPSULE PO PRN (23:10)
[2018-05-11] MEDS: CYCLOBENZAPRINE 10MG TABLET PO PRN (23:12)
[2018-05-12] VITALS (57 sets, daily range): BP systolic 62–142; BP diastolic 20–102
[2018-05-12] MEDS: DOPAMINE 400MG PREMIX 250 ML IV PRN (03:00)
[2018-05-12] MEDS ORDERED: DOPAMINE HCL 400 MG in DEXT 5% WATER 245 ML IV PRN (04:00)
[2018-05-12 06:46] LABS: HEMATOCRIT. 31.5 % (42.0-52.0); HEMOGLOBIN. 9.6 g/dL (14.0-18.0); MEAN CORPUSCULAR HEMOGLOBIN 21.2 pg (28.0-32.0); MEAN CORPUSCULAR VOLUME 69.9 fL (80.0-94.0); MEAN PLATELET VOLUME 9.1 fl (7.4-10.4); PLATELET 333 x1000/uL (130-400); RED BLOOD CELL COUNT 4.51 mill/uL (4.7-6.1); RED CELL DISTRIBUTION WIDTH 23.3 % (11.6-14.6)
[2018-05-12 06:55] LABS: NUCLEATED RED BLOOD CELLS 1 /100 WBC
[2018-05-12 06:56] LABS: PLATELET ESTIMATE NORMAL
[2018-05-12] MEDS: FUROSEMIDE 100MG/10ML VIAL IVP SCH (10:00)
[2018-05-12] MEDS: AMPICILLIN SOD/SULBACTAM NA 1.5 G in SODIUM CHLORIDE 0.9% 50 ML IV SCH ×2 (10:00→21:37)
[2018-05-12] MEDS: PANTOPRAZOLE SODIUM 40 MG/VIAL IV SCH (10:00)
[2018-05-12 10:01] LABS: NUCLEATED RED BLOOD CELLS 3 /100 WBC
[2018-05-12] MEDS: PREDNISONE 20MG TABLET PO SCH (10:01)
[2018-05-12] MEDS: ALLOPURINOL 100 MG TABLET PO SCH (10:01)
[2018-05-12] MEDS: APIXABAN 5 MG TABLET PO SCH ×2 (10:01→21:37)
[2018-05-12] MEDS: ASPIRIN 81MG TABLET PO SCH (10:01)
[2018-05-12] MEDS: AMIODARONE HCL 200 MG TABLET PO SCH (10:01)
[2018-05-12 10:02] LABS: PLATELET ESTIMATE NORMAL
[2018-05-12] MEDS: ENTRESTO 49MG/51MG PO SCH ×2 (10:02→21:38)
[2018-05-12] MEDS: CARVEDILOL 6.25 MG TABLET PO SCH ×2 (10:02→21:00)
[2018-05-12] MEDS: UMECLIDINIUM BROMIDE 1 INH BLST.W.DEV IH SCH (10:02)
[2018-05-12] MEDS: FLUTICASONE/VILANTEROL 200-25 BLST.W.DEV ORI SCH (10:03)
[2018-05-12] MEDS ORDERED: NOREPINEPHRINE 8 MG in DEXT 5% WATER 242 ML IV PRN (13:30)
[2018-05-12] MEDS ORDERED: ONDANSETRON HCL 4MG/2ML VIAL ONE (13:41)
[2018-05-12] MEDS: ONDANSETRON HCL 4MG/2ML VIAL IV PRN (13:54)
[2018-05-12] MEDS ORDERED: METHYLPREDNISOLONE SOD SUCC 125 MG/2 ML VIAL IV NR (14:00)
[2018-05-12] MEDS ORDERED: ONDANSETRON HCL 4MG/2ML VIAL IV PRN (14:00)
[2018-05-12] MEDS ORDERED: KETOROLAC 15MG/ML VIAL IV PRN (14:00)
[2018-05-12] MEDS ORDERED: MORPHINE SULFATE 4 MG/ML CPJ (NOT FOR IM USE) IV PRN (14:18)
[2018-05-12 16:36] LABS: BG BASE EXCESS -2.9 mmol/L (-2.0-2.0); BG CARBOXYHEMOGLOBIN 0.8 % (0.5-1.5); BG FRACTION INSPIRED OXYGEN 21; BG HCO3 ACT 22.4 mmol/L (22.0-26.0); BG OXYGEN SATURATION 90.9 % (92.0-98.5); BG OXYHEMOGLOBIN 90.2 % (94.0-97.0); BG PCO2 41.4 mmHg (35.0-45.0); BG PH 7.352 (7.350-7.450); BG PO2 61.8 mmHg (75.0-100.0); BG SAMPLE SITE RIGHT RADIAL; BG TOTAL HEMOGLOBIN 9.9 g/dL (12.0-18.0); BG VENT MODE ROOM AIR
[2018-05-12] MEDS: ATORVASTATIN CALCIUM 40MG TABLET PO SCH (21:36)
[2018-05-12] MEDS: TEMAZEPAM 15MG CAPSULE PO PRN (21:37)
[2018-05-12] MEDS: METHYLPREDNISOLONE SOD SUCC 40 MG/ML VIAL IV SCH (21:38)
[2018-05-12] MEDS: CYCLOBENZAPRINE 10MG TABLET PO PRN (21:42)
[2018-05-12] MEDS: DOPAMINE 800MG PREMIX 250 ML IV PRN (23:05)
[2018-05-13] VITALS (59 sets, daily range): BP systolic 78–143; BP diastolic 21–88
[2018-05-13] MEDS: IPRATROPIUM/ALBUTEROL 0.5-3(2.5)MG/3ML NEB HHN SCH ×6 (01:34→20:56)
[2018-05-13 05:37] LABS: HEMATOCRIT. 29.6 % (42.0-52.0); HEMOGLOBIN. 8.9 g/dL (14.0-18.0); MEAN CORPUSCULAR HEMOGLOBIN 20.9 pg (28.0-32.0); MEAN PLATELET VOLUME 8.6 fl (7.4-10.4); PLATELET 331 x1000/uL (130-400); RED BLOOD CELL COUNT 4.28 mill/uL (4.7-6.1); RED CELL DISTRIBUTION WIDTH 22.6 % (11.6-14.6)
[2018-05-13] MEDS: METHYLPREDNISOLONE SOD SUCC 40 MG/ML VIAL IV SCH ×3 (05:46→20:29)
[2018-05-13 05:48] LABS: PHOSPHORUS 6.6 mg/dL (2.5-4.9)
[2018-05-13] MEDS: ENTRESTO 49MG/51MG PO SCH ×2 (09:00→20:31)
[2018-05-13] MEDS: CARVEDILOL 6.25 MG TABLET PO SCH ×2 (09:00→20:31)
[2018-05-13] MEDS: PANTOPRAZOLE SODIUM 40 MG/VIAL IV SCH (09:46)
[2018-05-13] MEDS: AMIODARONE HCL 200 MG TABLET PO SCH (09:47)
[2018-05-13] MEDS: ASPIRIN 81MG TABLET PO SCH (09:47)
[2018-05-13] MEDS: APIXABAN 5 MG TABLET PO SCH ×2 (09:47→20:31)
[2018-05-13] MEDS: ALLOPURINOL 100 MG TABLET PO SCH (09:47)
[2018-05-13] MEDS: FUROSEMIDE 100MG/10ML VIAL IVP SCH (09:47)
[2018-05-13] MEDS: DOPAMINE 800MG PREMIX 250 ML IV PRN ×2 (10:19→20:50)
[2018-05-13] MEDS: DOBUTAMINE HCL 500 MG in DEXT 5% WATER 210 ML IV SCH (10:30)
[2018-05-13] MEDS: AMPICILLIN SOD/SULBACTAM NA 1.5 G in SODIUM CHLORIDE 0.9% 50 ML IV SCH ×2 (11:06→20:33)
[2018-05-13 11:41] LABS: PLATELET ESTIMATE NORMAL
[2018-05-13] MEDS: CALCIUM ACETATE 667MG CAPSULE PO SCH (18:17)
[2018-05-13] MEDS: GUAIFENESIN/CODEINE 100-10MG/5ML UDC PO PRN (20:28)
[2018-05-13] MEDS: TEMAZEPAM 15MG CAPSULE PO PRN (20:30)
[2018-05-13] MEDS: CYCLOBENZAPRINE 10MG TABLET PO PRN (20:30)
[2018-05-13] MEDS: ATORVASTATIN CALCIUM 40MG TABLET PO SCH (20:31)
[2018-05-14] VITALS (54 sets, daily range): BP systolic 79–132; BP diastolic 29–78
[2018-05-14] MEDS: IPRATROPIUM/ALBUTEROL 0.5-3(2.5)MG/3ML NEB HHN SCH ×6 (00:44→20:45)
[2018-05-14] MEDS: DOBUTAMINE HCL 500 MG in DEXT 5% WATER 210 ML IV SCH ×2 (04:27→19:49)
[2018-05-14] MEDS: GUAIFENESIN/CODEINE 100-10MG/5ML UDC PO PRN (05:48)
[2018-05-14] MEDS: METHYLPREDNISOLONE SOD SUCC 40 MG/ML VIAL IV SCH ×3 (05:48→21:17)
[2018-05-14 05:52] LABS: HEMATOCRIT. 28.1 % (42.0-52.0); HEMOGLOBIN. 8.5 g/dL (14.0-18.0); MEAN CORPUSCULAR HEMOGLOBIN 20.9 pg (28.0-32.0); MEAN CORPUSCULAR VOLUME 68.5 fL (80.0-94.0); MEAN PLATELET VOLUME 9.3 fl (7.4-10.4); PLATELET 299 x1000/uL (130-400); RED CELL DISTRIBUTION WIDTH 23.1 % (11.6-14.6)
[2018-05-14] MEDS: DOPAMINE 800MG PREMIX 250 ML IV PRN ×2 (08:13→19:48)
[2018-05-14 08:17] LABS: PLATELET ESTIMATE NORMAL
[2018-05-14] MEDS: PANTOPRAZOLE SODIUM 40 MG/VIAL IV SCH (09:00)
[2018-05-14] MEDS: ENTRESTO 49MG/51MG PO SCH ×2 (09:00→21:00)
[2018-05-14] MEDS: AMPICILLIN SOD/SULBACTAM NA 1.5 G in SODIUM CHLORIDE 0.9% 50 ML IV SCH ×2 (10:00→21:18)
[2018-05-14] MEDS: APIXABAN 5 MG TABLET PO SCH ×2 (10:54→21:17)
[2018-05-14] MEDS: ASPIRIN 81MG TABLET PO SCH (10:54)
[2018-05-14] MEDS: CALCIUM ACETATE 667MG CAPSULE PO SCH ×3 (10:54→19:13)
[2018-05-14] MEDS: ALLOPURINOL 100 MG TABLET PO SCH (10:54)
[2018-05-14] MEDS: AMIODARONE HCL 200 MG TABLET PO SCH (10:55)
[2018-05-14] MEDS: FUROSEMIDE 100MG/10ML VIAL IVP SCH (10:56)
[2018-05-14] MEDS: EPOETIN ALFA 4000UNITS/ML VIAL SUBCUT SCH (21:16)
[2018-05-14] MEDS: CYCLOBENZAPRINE 10MG TABLET PO PRN (21:17)
[2018-05-14] MEDS: ATORVASTATIN CALCIUM 40MG TABLET PO SCH (21:17)
[2018-05-14] MEDS: TEMAZEPAM 15MG CAPSULE PO PRN (21:39)
[2018-05-15] VITALS (96 sets, daily range): BP systolic 72–137; BP diastolic 30–79
[2018-05-15] MEDS: IPRATROPIUM/ALBUTEROL 0.5-3(2.5)MG/3ML NEB HHN SCH ×6 (00:06→20:03)
[2018-05-15] MEDS ORDERED: DOPAMINE 800MG PREMIX 250 ML IV ONE (04:04)
[2018-05-15] MEDS ORDERED: DOPAMINE 800MG PREMIX 250 ML IV PRN (04:11)
[2018-05-15 05:30] LABS: HEMATOCRIT. 25.6 % (42.0-52.0); HEMOGLOBIN. 7.8 g/dL (14.0-18.0); MEAN CORPUSCULAR HEMOGLOBIN 21.3 pg (28.0-32.0); MEAN CORPUSCULAR VOLUME 69.3 fL (80.0-94.0); MEAN PLATELET VOLUME 9.1 fl (7.4-10.4); PLATELET 258 x1000/uL (130-400); RED BLOOD CELL COUNT 3.69 mill/uL (4.7-6.1); RED CELL DISTRIBUTION WIDTH 23.7 % (11.6-14.6)
[2018-05-15] MEDS: METHYLPREDNISOLONE SOD SUCC 40 MG/ML VIAL IV SCH ×3 (06:16→21:23)
[2018-05-15 06:45] LABS: CORTISOL 21.4 ucg/dL
[2018-05-15 07:13] LABS: PLATELET ESTIMATE NORMAL
[2018-05-15] MEDS: ENTRESTO 49MG/51MG PO SCH ×2 (09:00→21:24)
[2018-05-15] MEDS: ALLOPURINOL 100 MG TABLET PO SCH (09:22)
[2018-05-15] MEDS: PANTOPRAZOLE SODIUM 40 MG/VIAL IV SCH (09:22)
[2018-05-15] MEDS: APIXABAN 5 MG TABLET PO SCH ×2 (09:23→21:23)
[2018-05-15] MEDS: FOLIC ACID/VITAMIN B COMP W-C TABLET PO SCH (09:23)
[2018-05-15] MEDS: CALCIUM ACETATE 667MG CAPSULE PO SCH ×3 (09:23→18:54)
[2018-05-15] MEDS: AMIODARONE HCL 200 MG TABLET PO SCH (09:23)
[2018-05-15] MEDS: ASPIRIN 81MG TABLET PO SCH (09:23)
[2018-05-15] MEDS: FUROSEMIDE 100MG/10ML VIAL IVP SCH (09:24)
[2018-05-15] MEDS: AMPICILLIN SOD/SULBACTAM NA 1.5 G in SODIUM CHLORIDE 0.9% 50 ML IV SCH (09:24)
[2018-05-15] MEDS: ONDANSETRON HCL 4MG/2ML VIAL IV PRN (09:31)
[2018-05-15] MEDS: DOPAMINE 800MG PREMIX 250 ML IV SCH ×2 (12:40→23:18)
[2018-05-15] MEDS: DOBUTAMINE HCL 500 MG in DEXT 5% WATER 210 ML IV SCH (12:41)
[2018-05-15] MEDS: IRON SUCROSE COMPLEX 100 MG/5 ML ML IV SCH (13:44)
[2018-05-15] MEDS: ATORVASTATIN CALCIUM 40MG TABLET PO SCH (21:23)
[2018-05-15] MEDS: AMOXICILLIN 500 MG CAPSULE PO SCH (21:23)
[2018-05-16] VITALS (99 sets, daily range): BP systolic 52–145; BP diastolic 18–88
[2018-05-16] MEDS: IPRATROPIUM/ALBUTEROL 0.5-3(2.5)MG/3ML NEB HHN SCH ×6 (00:34→20:04)
[2018-05-16] MEDS: DIPHENHYDRAMINE 50MG/ML VIAL IV PRN (00:53)
[2018-05-16] MEDS: CYCLOBENZAPRINE 10MG TABLET PO PRN ×2 (00:53→18:26)
[2018-05-16] MEDS: METHYLPREDNISOLONE SOD SUCC 40 MG/ML VIAL IV SCH ×3 (05:31→21:42)
[2018-05-16] MEDS: DOBUTAMINE HCL 500 MG in DEXT 5% WATER 210 ML IV SCH ×2 (05:32→21:42)
[2018-05-16 06:07] LABS: HEMATOCRIT. 25.2 % (42.0-52.0); HEMOGLOBIN. 7.7 g/dL (14.0-18.0); MEAN CORPUSCULAR HEMOGLOBIN 21.3 pg (28.0-32.0); MEAN CORPUSCULAR VOLUME 69.6 fL (80.0-94.0); MEAN PLATELET VOLUME 9.7 fl (7.4-10.4); PLATELET 249 x1000/uL (130-400); RED BLOOD CELL COUNT 3.63 mill/uL (4.7-6.1); RED CELL DISTRIBUTION WIDTH 22.8 % (11.6-14.6)
[2018-05-16 07:07] LABS: NUCLEATED RED BLOOD CELLS 1 /100 WBC; PLATELET ESTIMATE NORMAL
[2018-05-16] MEDS: ENTRESTO 49MG/51MG PO SCH ×2 (09:00→20:18)
[2018-05-16] MEDS: DOPAMINE 800MG PREMIX 250 ML IV SCH ×2 (11:09→21:43)
[2018-05-16] MEDS ORDERED: SODIUM BICARBONATE 8.4% 1 MEQ/ML 50ML SYR IV ONE (13:01)
[2018-05-16] MEDS: CALCIUM ACETATE 667MG CAPSULE PO SCH ×3 (13:20→19:03)
[2018-05-16] MEDS: PANTOPRAZOLE SODIUM 40 MG/VIAL IV SCH (17:34)
[2018-05-16] MEDS: IRON SUCROSE COMPLEX 100 MG/5 ML ML IV SCH (17:35)
[2018-05-16] MEDS: FUROSEMIDE 100MG/10ML VIAL IVP SCH (17:35)
[2018-05-16] MEDS: AMOXICILLIN 500 MG CAPSULE PO SCH ×2 (17:36→20:18)
[2018-05-16] MEDS: FOLIC ACID/VITAMIN B COMP W-C TABLET PO SCH (17:36)
[2018-05-16] MEDS: ASPIRIN 81MG TABLET PO SCH (17:38)
[2018-05-16] MEDS: APIXABAN 5 MG TABLET PO SCH ×2 (17:38→20:18)
[2018-05-16] MEDS: AMIODARONE HCL 200 MG TABLET PO SCH (17:38)
[2018-05-16] MEDS: ALLOPURINOL 100 MG TABLET PO SCH (17:39)
[2018-05-16] MEDS: ONDANSETRON HCL 4MG/2ML VIAL IV PRN (20:15)
[2018-05-16] MEDS: ATORVASTATIN CALCIUM 40MG TABLET PO SCH (20:18)
[2018-05-16] MEDS: EPOETIN ALFA 4000UNITS/ML VIAL SUBCUT SCH (20:19)
[2018-05-17] VITALS (89 sets, daily range): BP systolic 79–141; BP diastolic 30–76
[2018-05-17] MEDS: IPRATROPIUM/ALBUTEROL 0.5-3(2.5)MG/3ML NEB HHN SCH ×6 (00:55→20:39)
[2018-05-17] MEDS: METHYLPREDNISOLONE SOD SUCC 40 MG/ML VIAL IV SCH ×3 (05:35→21:02)
[2018-05-17] MEDS: DOPAMINE 800MG PREMIX 250 ML IV SCH ×2 (06:44→19:17)
[2018-05-17] MEDS: AMOXICILLIN 500 MG CAPSULE PO SCH ×2 (09:26→21:02)
[2018-05-17] MEDS: PANTOPRAZOLE SODIUM 40 MG/VIAL IV SCH (09:26)
[2018-05-17] MEDS: IRON SUCROSE COMPLEX 100 MG/5 ML ML IV SCH (09:26)
[2018-05-17] MEDS: FUROSEMIDE 100MG/10ML VIAL IVP SCH (09:26)
[2018-05-17] MEDS: CALCIUM ACETATE 667MG CAPSULE PO SCH ×3 (09:27→18:55)
[2018-05-17] MEDS: ALLOPURINOL 100 MG TABLET PO SCH (09:27)
[2018-05-17] MEDS: AMIODARONE HCL 200 MG TABLET PO SCH (09:27)
[2018-05-17] MEDS: ASPIRIN 81MG TABLET PO SCH (09:27)
[2018-05-17] MEDS: FOLIC ACID/VITAMIN B COMP W-C TABLET PO SCH (09:27)
[2018-05-17] MEDS: ENTRESTO 49MG/51MG PO SCH ×2 (09:27→21:00)
[2018-05-17] MEDS: APIXABAN 5 MG TABLET PO SCH ×2 (09:27→21:02)
[2018-05-17] MEDS ORDERED: FAMOTIDINE 20MG/2ML VIAL IV PRN (15:00)
[2018-05-17] MEDS: FAMOTIDINE 20MG/2ML VIAL IV PRN (15:36)
[2018-05-17] MEDS: DOBUTAMINE HCL 500 MG in DEXT 5% WATER 210 ML IV SCH (19:19)
[2018-05-17] MEDS: ATORVASTATIN CALCIUM 40MG TABLET PO SCH (21:02)
[2018-05-18] VITALS (91 sets, daily range): BP systolic 61–117; BP diastolic 29–74
[2018-05-18] MEDS: IPRATROPIUM/ALBUTEROL 0.5-3(2.5)MG/3ML NEB HHN SCH ×6 (00:21→19:55)
[2018-05-18] MEDS: GUAIFENESIN/CODEINE 100-10MG/5ML UDC PO PRN ×3 (00:40→22:35)
[2018-05-18] MEDS: FAMOTIDINE 20MG/2ML VIAL IV PRN (00:41)
[2018-05-18] MEDS: CYCLOBENZAPRINE 10MG TABLET PO PRN (00:41)
[2018-05-18] MEDS: ONDANSETRON HCL 4MG/2ML VIAL IV PRN (00:41)
[2018-05-18] MEDS: DIPHENHYDRAMINE 50MG/ML VIAL IV PRN (00:41)
[2018-05-18 05:43] LABS: HEMOGLOBIN. 7.1 g/dL (14.0-18.0); MEAN CORPUSCULAR HEMOGLOBIN 21.4 pg (28.0-32.0); MEAN CORPUSCULAR VOLUME 69.5 fL (80.0-94.0); MEAN PLATELET VOLUME 9.7 fl (7.4-10.4); PLATELET 242 x1000/uL (130-400); RED BLOOD CELL COUNT 3.32 mill/uL (4.7-6.1); RED CELL DISTRIBUTION WIDTH 23.2 % (11.6-14.6)
[2018-05-18] MEDS: METHYLPREDNISOLONE SOD SUCC 40 MG/ML VIAL IV SCH ×3 (06:13→21:50)
[2018-05-18 07:10] LABS: NUCLEATED RED BLOOD CELLS 2 /100 WBC; PLATELET ESTIMATE NORMAL
[2018-05-18] MEDS: FOLIC ACID/VITAMIN B COMP W-C TABLET PO SCH (09:00)
[2018-05-18] MEDS: ENTRESTO 49MG/51MG PO SCH ×2 (09:00→21:00)
[2018-05-18] MEDS: PANTOPRAZOLE SODIUM 40 MG/VIAL IV SCH (10:42)
[2018-05-18] MEDS: DOPAMINE 800MG PREMIX 250 ML IV SCH ×2 (10:42→22:26)
[2018-05-18] MEDS: DOBUTAMINE HCL 500 MG in DEXT 5% WATER 210 ML IV SCH (11:02)
[2018-05-18] MEDS: CALCIUM ACETATE 667MG CAPSULE PO SCH ×3 (12:58→17:33)
[2018-05-18] MEDS: AMIODARONE HCL 200 MG TABLET PO SCH (12:58)
[2018-05-18] MEDS: ALLOPURINOL 100 MG TABLET PO SCH (12:58)
[2018-05-18] MEDS: ASPIRIN 81MG TABLET PO SCH (12:58)
[2018-05-18] MEDS: APIXABAN 5 MG TABLET PO SCH ×2 (12:58→21:52)
[2018-05-18] MEDS: MIDODRINE HCL 5MG TABLET PO SCH ×3 (12:58→21:50)
[2018-05-18] MEDS: AMOXICILLIN 500 MG CAPSULE PO SCH ×2 (12:59→21:50)
[2018-05-18] MEDS: IRON SUCROSE COMPLEX 100 MG/5 ML ML IV SCH (12:59)
[2018-05-18] MEDS: FUROSEMIDE 100MG/10ML VIAL IVP SCH (12:59)
[2018-05-18] MEDS ORDERED: MIDODRINE HCL 2.5MG TABLET PO SCH (13:00)
[2018-05-18 13:48] LABS: HEPATITIS B SURFACE ANTIGEN NEGATIVE
[2018-05-18] MEDS ORDERED: MAGNESIUM CITRATE 300ML SOLUTION PO NR (18:00)
[2018-05-18] MEDS: ATORVASTATIN CALCIUM 40MG TABLET PO SCH (21:50)
[2018-05-18] MEDS: TEMAZEPAM 15MG CAPSULE PO PRN (22:25)
[2018-05-19] VITALS (67 sets, daily range): BP systolic 76–115; BP diastolic 21–66
[2018-05-19] MEDS: IPRATROPIUM/ALBUTEROL 0.5-3(2.5)MG/3ML NEB HHN SCH ×6 (00:20→20:04)
[2018-05-19] MEDS: DOBUTAMINE HCL 500 MG in DEXT 5% WATER 210 ML IV SCH ×2 (04:37→20:39)
[2018-05-19 05:22] LABS: HEMATOCRIT. 21.3 % (42.0-52.0); MEAN CORPUSCULAR HEMOGLOBIN 21.5 pg (28.0-32.0); MEAN PLATELET VOLUME 9.4 fl (7.4-10.4); PLATELET 220 x1000/uL (130-400); RED BLOOD CELL COUNT 3.01 mill/uL (4.7-6.1); RED CELL DISTRIBUTION WIDTH 23.4 % (11.6-14.6)
[2018-05-19] MEDS: GUAIFENESIN/CODEINE 100-10MG/5ML UDC PO PRN ×3 (05:35→20:36)
[2018-05-19] MEDS: FAMOTIDINE 20MG/2ML VIAL IV PRN (05:35)
[2018-05-19 05:46] LABS: HEMOGLOBIN. 6.5 g/dL (14.0-18.0)
[2018-05-19] MEDS: METHYLPREDNISOLONE SOD SUCC 40 MG/ML VIAL IV SCH (05:47)
[2018-05-19] MEDS ORDERED: POTASSIUM CHLORIDE INJ 40 MEQ in DEXT 5% WATER 250 ML IV ONE (07:15)
[2018-05-19] MEDS: CALCIUM ACETATE 667MG CAPSULE PO SCH ×3 (08:20→16:59)
[2018-05-19] MEDS: ENTRESTO 49MG/51MG PO SCH ×2 (09:00→20:38)
[2018-05-19 09:16] LABS: NUCLEATED RED BLOOD CELLS 3 /100 WBC; PLATELET ESTIMATE NORMAL
[2018-05-19] MEDS: PANTOPRAZOLE SODIUM 40 MG/VIAL IV SCH (10:04)
[2018-05-19] MEDS: IRON SUCROSE COMPLEX 100 MG/5 ML ML IV SCH (10:04)
[2018-05-19] MEDS: PREDNISONE 20MG TABLET PO SCH (10:05)
[2018-05-19] MEDS: FOLIC ACID/VITAMIN B COMP W-C TABLET PO SCH (10:05)
[2018-05-19] MEDS: FUROSEMIDE 100MG/10ML VIAL IVP SCH (10:05)
[2018-05-19] MEDS: ALLOPURINOL 100 MG TABLET PO SCH (10:05)
[2018-05-19] MEDS: AMOXICILLIN 500 MG CAPSULE PO SCH ×2 (10:05→20:36)
[2018-05-19] MEDS: MIDODRINE HCL 5MG TABLET PO SCH ×4 (10:06→20:38)
[2018-05-19] MEDS: APIXABAN 5 MG TABLET PO SCH (10:06)
[2018-05-19] MEDS: AMIODARONE HCL 200 MG TABLET PO SCH (10:06)
[2018-05-19] MEDS: ASPIRIN 81MG TABLET PO SCH (10:06)
[2018-05-19 10:54] LABS: CLARITY URINE CLEAR (CLEAR); COLOR URINE YELLOW (YELLOW); KETONES URINE NEGATIVE (NEGATIVE); LEUKOCYTE ESTERASE URINE NEGATIVE (NEGATIVE); NITRITE URINE NEGATIVE (NEGATIVE); OCCULT BLOOD URINE NEGATIVE (NEGATIVE); PROTEIN URINE NEGATIVE (NEGATIVE); SPECIFIC GRAVITY URINE 1.016 (1.005-1.030)
[2018-05-19] MEDS ORDERED: LACTULOSE 20G/30ML UDC PO PRN (11:30)
[2018-05-19] MEDS: ONDANSETRON HCL 4MG/2ML VIAL IV PRN ×2 (11:44→13:47)
[2018-05-19] MEDS: DOCUSATE SODIUM 250MG CAPSULE PO SCH (11:48)
[2018-05-19] MEDS ORDERED: LACTULOSE 20G/30ML UDC PO NR (12:15)
[2018-05-19] MEDS: DOPAMINE 800MG PREMIX 250 ML IV SCH ×2 (13:48→20:39)
[2018-05-19 19:43] LABS: HEMOGLOBIN 6.7 g/dL (14.0-18.0)
[2018-05-19 19:44] LABS: HEMATOCRIT 21.6 % (42.0-52.0)
[2018-05-19] MEDS: EPOETIN ALFA 4000UNITS/ML VIAL SUBCUT SCH (20:36)
[2018-05-19] MEDS: ATORVASTATIN CALCIUM 40MG TABLET PO SCH (20:38)
[2018-05-19] MEDS: SIMETHICONE 80MG TABLET CHEW PO SCH (21:57)
[2018-05-20] VITALS (104 sets, daily range): BP systolic 51–150; BP diastolic 27–101
[2018-05-20] MEDS: IPRATROPIUM/ALBUTEROL 0.5-3(2.5)MG/3ML NEB HHN SCH ×6 (00:30→21:06)
[2018-05-20] MEDS: DOPAMINE 800MG PREMIX 250 ML IV SCH ×4 (03:56→23:33)
[2018-05-20 05:40] LABS: HEMATOCRIT. 24.7 % (42.0-52.0); HEMOGLOBIN. 7.8 g/dL (14.0-18.0); MEAN CORPUSCULAR HEMOGLOBIN 23.6 pg (28.0-32.0); MEAN CORPUSCULAR VOLUME 74.8 fL (80.0-94.0); MEAN PLATELET VOLUME 9.7 fl (7.4-10.4); PLATELET 204 x1000/uL (130-400); RED CELL DISTRIBUTION WIDTH 24.7 % (11.6-14.6)
[2018-05-20] MEDS: SIMETHICONE 80MG TABLET CHEW PO SCH ×2 (08:09→16:33)
[2018-05-20] MEDS: MIDODRINE HCL 5MG TABLET PO SCH ×4 (08:09→20:53)
[2018-05-20] MEDS: CALCIUM ACETATE 667MG CAPSULE PO SCH ×3 (08:09→17:38)
[2018-05-20] MEDS: AMOXICILLIN 500 MG CAPSULE PO SCH ×2 (08:09→20:52)
[2018-05-20] MEDS: FOLIC ACID/VITAMIN B COMP W-C TABLET PO SCH (08:09)
[2018-05-20] MEDS: ALLOPURINOL 100 MG TABLET PO SCH (08:10)
[2018-05-20] MEDS: PREDNISONE 20MG TABLET PO SCH (08:10)
[2018-05-20] MEDS: DOCUSATE SODIUM 250MG CAPSULE PO SCH (08:10)
[2018-05-20] MEDS: IRON SUCROSE COMPLEX 100 MG/5 ML ML IV SCH (08:11)
[2018-05-20] MEDS: AMIODARONE HCL 200 MG TABLET PO SCH (08:11)
[2018-05-20] MEDS: PANTOPRAZOLE SODIUM 40 MG/VIAL IV SCH ×2 (08:11→20:52)
[2018-05-20] MEDS: FUROSEMIDE 100MG/10ML VIAL IVP SCH (08:11)
[2018-05-20] MEDS: CYCLOBENZAPRINE 10MG TABLET PO PRN ×2 (08:37→20:53)
[2018-05-20] MEDS: ENTRESTO 49MG/51MG PO SCH ×2 (08:37→20:53)
[2018-05-20] MEDS: DOBUTAMINE HCL 500 MG in DEXT 5% WATER 210 ML IV SCH (09:36)
[2018-05-20 10:45] LABS: NUCLEATED RED BLOOD CELLS 3 /100 WBC
[2018-05-20 10:46] LABS: PLATELET ESTIMATE NORMAL
[2018-05-20] MEDS: FAMOTIDINE 20MG/2ML VIAL IV PRN (16:33)
[2018-05-20 19:45] LABS: HEMATOCRIT 27.2 % (42.0-52.0); HEMOGLOBIN 8.5 g/dL (14.0-18.0)
[2018-05-20] MEDS: ATORVASTATIN CALCIUM 40MG TABLET PO SCH (20:52)
[2018-05-20] MEDS: METHYLPREDNISOLONE SOD SUCC 40 MG/ML VIAL IV SCH (20:52)
[2018-05-20] MEDS: TEMAZEPAM 15MG CAPSULE PO PRN (20:53)
[2018-05-20] MEDS: GUAIFENESIN/CODEINE 100-10MG/5ML UDC PO PRN (20:56)
[2018-05-21] VITALS (119 sets, daily range): BP systolic 71–160; BP diastolic 2–119
[2018-05-21] MEDS: IPRATROPIUM/ALBUTEROL 0.5-3(2.5)MG/3ML NEB HHN SCH ×6 (00:01→20:04)
[2018-05-21 00:46] LABS: HEMATOCRIT 26.5 % (42.0-52.0); HEMOGLOBIN 8.5 g/dL (14.0-18.0)
[2018-05-21] MEDS: DOBUTAMINE HCL 500 MG in DEXT 5% WATER 210 ML IV SCH ×2 (05:29→22:09)
[2018-05-21 05:31] LABS: HEMATOCRIT. 25.4 % (42.0-52.0); HEMOGLOBIN. 7.9 g/dL (14.0-18.0); MEAN CORPUSCULAR HEMOGLOBIN 23.5 pg (28.0-32.0); MEAN CORPUSCULAR VOLUME 75.9 fL (80.0-94.0); MEAN PLATELET VOLUME 9.9 fl (7.4-10.4); PLATELET 174 x1000/uL (130-400); RED BLOOD CELL COUNT 3.34 mill/uL (4.7-6.1)
[2018-05-21 05:36] LABS: INR 1.3; PARTIAL THROMBOPLASTIN TIME 24.8 sec (23.4-31.0); PROTHROMBIN TIME 13.8 sec (9.4-11.6)
[2018-05-21 05:51] LABS: PHOSPHORUS 3.7 mg/dL (2.5-4.9)
[2018-05-21] MEDS: DOPAMINE 800MG PREMIX 250 ML IV SCH ×3 (05:56→22:08)
[2018-05-21] MEDS: FOLIC ACID/VITAMIN B COMP W-C TABLET PO SCH (08:19)
[2018-05-21] MEDS: PREDNISONE 20MG TABLET PO SCH (08:19)
[2018-05-21] MEDS: AMOXICILLIN 500 MG CAPSULE PO SCH ×2 (08:19→22:01)
[2018-05-21] MEDS: SIMETHICONE 80MG TABLET CHEW PO SCH ×2 (08:19→17:11)
[2018-05-21] MEDS: CALCIUM ACETATE 667MG CAPSULE PO SCH ×4 (08:19→18:20)
[2018-05-21] MEDS: PANTOPRAZOLE SODIUM 40 MG/VIAL IV SCH ×2 (08:20→22:01)
[2018-05-21] MEDS: METHYLPREDNISOLONE SOD SUCC 40 MG/ML VIAL IV SCH ×2 (08:21→22:01)
[2018-05-21] MEDS: FUROSEMIDE 100MG/10ML VIAL IVP SCH (08:21)
[2018-05-21] MEDS: IRON SUCROSE COMPLEX 100 MG/5 ML ML IV SCH (08:21)
[2018-05-21] MEDS: ENTRESTO 49MG/51MG PO SCH (08:23)
[2018-05-21] MEDS: ALLOPURINOL 100 MG TABLET PO SCH (08:42)
[2018-05-21] MEDS: DOCUSATE SODIUM 250MG CAPSULE PO SCH (08:42)
[2018-05-21] MEDS: AMIODARONE HCL 200 MG TABLET PO SCH (09:00)
[2018-05-21] MEDS: MIDODRINE HCL 5MG TABLET PO SCH ×2 (09:00→13:00)
[2018-05-21] MEDS ORDERED: MIDAZOLAM HCL 5 MG/5 ML VIAL ONE (10:31)
[2018-05-21] MEDS ORDERED: SIMETHICONE 40 MG/0.6 ML 30ML ONE (10:32)
[2018-05-21] MEDS ORDERED: FENTANYL CITRATE/PF 50MCG/ML 2ML VIAL ONE (10:32)
[2018-05-21 10:52] LABS: NUCLEATED RED BLOOD CELLS 3 /100 WBC; PLATELET ESTIMATE NORMAL
[2018-05-21] MEDS ORDERED: LIDOCAINE HCL/PF 1% 10 MG/ML 5ML VIAL IJ NR (11:15)
[2018-05-21] MEDS ORDERED: MIDAZOLAM HCL 5 MG/5 ML VIAL IV PRN (12:02)
[2018-05-21 12:55] LABS: HEMATOCRIT 25.1 % (42.0-52.0)
[2018-05-21] MEDS ORDERED: SODIUM CHLORIDE 0.9% 10ML VIAL ONE (15:12)
[2018-05-21] MEDS: METOCLOPRAMIDE HCL 10MG/2ML VIAL IV SCH (17:10)
[2018-05-21] MEDS: MIDODRINE HCL 10 MG TABLET PO SCH ×2 (17:10→22:01)
[2018-05-21 17:41] LABS: HEMATOCRIT 24.7 % (42.0-52.0); HEMOGLOBIN 7.9 g/dL (14.0-18.0)
[2018-05-21 19:03] LABS: BG BASE EXCESS -2.2 mmol/L (-2.0-2.0); BG CARBOXYHEMOGLOBIN 0.2 % (0.5-1.5); BG DEOXYHEMOGLOBIN 6.2 % (0.0-5.0); BG FRACTION INSPIRED OXYGEN 28; BG HCO3 ACT 22.4 mmol/L (22.0-26.0); BG METHEMOGLOBIN 0.3 % (0.0-1.5); BG OXYGEN SATURATION 93.8 % (92.0-98.5); BG OXYHEMOGLOBIN 93.3 % (94.0-97.0); BG PCO2 37.8 mmHg (35.0-45.0); BG PH 7.391 (7.350-7.450); BG PO2 71.1 mmHg (75.0-100.0); BG SAMPLE SITE A-LINE; BG TOTAL HEMOGLOBIN 9.4 g/dL (12.0-18.0); BG VENT MODE NASAL CANNULA
[2018-05-21] MEDS: ATORVASTATIN CALCIUM 40MG TABLET PO SCH (22:01)
[2018-05-22] VITALS (101 sets, daily range): BP systolic 1–150; BP diastolic 1–91
[2018-05-22] MEDS: IPRATROPIUM/ALBUTEROL 0.5-3(2.5)MG/3ML NEB HHN SCH ×6 (00:27→19:57)
[2018-05-22] MEDS ORDERED: DOBUTAMINE HCL 500 MG in DEXT 5% WATER 210 ML IV SCH (03:00)
[2018-05-22] MEDS: DOPAMINE 800MG PREMIX 250 ML IV SCH ×4 (03:53→15:16)
[2018-05-22] MEDS: METOCLOPRAMIDE HCL 10MG/2ML VIAL IV SCH ×4 (03:53→17:34)
[2018-05-22 06:07] LABS: HEMATOCRIT. 27.3 % (42.0-52.0); HEMOGLOBIN. 8.9 g/dL (14.0-18.0); MEAN CORPUSCULAR HEMOGLOBIN 24.7 pg (28.0-32.0); MEAN CORPUSCULAR VOLUME 75.7 fL (80.0-94.0); MEAN PLATELET VOLUME 10.2 fl (7.4-10.4); PLATELET 176 x1000/uL (130-400); RED CELL DISTRIBUTION WIDTH 23.5 % (11.6-14.6)
[2018-05-22 06:10] LABS: CHLORIDE 96 mEq/L (98-107)
[2018-05-22] MEDS ORDERED: LIDOCAINE HCL 1% 20ML VIAL (Pyxis) INJ ONE (07:14)
[2018-05-22 07:23] LABS: NUCLEATED RED BLOOD CELLS 2 /100 WBC
[2018-05-22 07:24] LABS: PLATELET ESTIMATE NORMAL
[2018-05-22] MEDS: ALLOPURINOL 100 MG TABLET PO SCH (08:26)
[2018-05-22] MEDS: CALCIUM ACETATE 667MG CAPSULE PO SCH ×3 (08:26→18:20)
[2018-05-22] MEDS: DOCUSATE SODIUM 250MG CAPSULE PO SCH (08:26)
[2018-05-22] MEDS: AMIODARONE HCL 200 MG TABLET PO SCH (08:27)
[2018-05-22] MEDS: MIDODRINE HCL 10 MG TABLET PO SCH ×4 (08:27→21:20)
[2018-05-22] MEDS: AMOXICILLIN 500 MG CAPSULE PO SCH (08:27)
[2018-05-22] MEDS: IRON SUCROSE COMPLEX 100 MG/5 ML ML IV SCH (08:27)
[2018-05-22] MEDS: FOLIC ACID/VITAMIN B COMP W-C TABLET PO SCH (08:27)
[2018-05-22] MEDS: SIMETHICONE 80MG TABLET CHEW PO SCH ×2 (08:27→17:00)
[2018-05-22] MEDS: FUROSEMIDE 100MG/10ML VIAL IVP SCH (08:28)
[2018-05-22] MEDS: METHYLPREDNISOLONE SOD SUCC 40 MG/ML VIAL IV SCH ×2 (08:28→21:20)
[2018-05-22] MEDS: PANTOPRAZOLE SODIUM 40 MG/VIAL IV SCH ×2 (08:28→21:19)
[2018-05-22 14:27] LABS: TOTAL IRON BINDING CAPACITY 264 ug/dL (250-450)
[2018-05-22] MEDS: DOBUTAMINE HCL 500 MG in DEXT 5% WATER 210 ML IV SCH (17:34)
[2018-05-22] MEDS: GUAIFENESIN/CODEINE 100-10MG/5ML UDC PO PRN (21:19)
[2018-05-22] MEDS: ATORVASTATIN CALCIUM 40MG TABLET PO SCH (21:20)
[2018-05-22] MEDS: TEMAZEPAM 15MG CAPSULE PO PRN (21:20)
[2018-05-22] MEDS: CYCLOBENZAPRINE 10MG TABLET PO PRN (21:20)
[2018-05-23] VITALS (96 sets, daily range): BP systolic -1–155; BP diastolic -1–117
[2018-05-23] MEDS: IPRATROPIUM/ALBUTEROL 0.5-3(2.5)MG/3ML NEB HHN SCH ×6 (00:09→19:50)
[2018-05-23] MEDS: METOCLOPRAMIDE HCL 10MG/2ML VIAL IV SCH ×4 (01:13→17:57)
[2018-05-23] MEDS: FAMOTIDINE 20MG/2ML VIAL IV PRN (02:44)
[2018-05-23] MEDS: LACTULOSE 20G/30ML UDC PO PRN (04:59)
[2018-05-23] MEDS: DOPAMINE 800MG PREMIX 250 ML IV SCH ×2 (04:59→19:28)
[2018-05-23 07:02] LABS: HEMATOCRIT. 25.7 % (42.0-52.0); HEMOGLOBIN. 8.3 g/dL (14.0-18.0); MEAN CORPUSCULAR VOLUME 77.7 fL (80.0-94.0); MEAN PLATELET VOLUME 9.8 fl (7.4-10.4); PLATELET 157 x1000/uL (130-400); RED BLOOD CELL COUNT 3.31 mill/uL (4.7-6.1); RED CELL DISTRIBUTION WIDTH 23.9 % (11.6-14.6)
[2018-05-23] MEDS: FOLIC ACID/VITAMIN B COMP W-C TABLET PO SCH (08:40)
[2018-05-23] MEDS: PANTOPRAZOLE SODIUM 40 MG/VIAL IV SCH ×2 (08:40→21:31)
[2018-05-23] MEDS: METHYLPREDNISOLONE SOD SUCC 40 MG/ML VIAL IV SCH ×2 (08:40→21:30)
[2018-05-23] MEDS: CALCIUM ACETATE 667MG CAPSULE PO SCH ×3 (08:40→17:58)
[2018-05-23] MEDS: FUROSEMIDE 100MG/10ML VIAL IVP SCH (08:40)
[2018-05-23] MEDS: IRON SUCROSE COMPLEX 100 MG/5 ML ML IV SCH (08:40)
[2018-05-23] MEDS: DOCUSATE SODIUM 250MG CAPSULE PO SCH ×2 (08:40→17:58)
[2018-05-23] MEDS: SIMETHICONE 80MG TABLET CHEW PO SCH ×2 (08:41→17:58)
[2018-05-23] MEDS: ALLOPURINOL 100 MG TABLET PO SCH (08:41)
[2018-05-23] MEDS: MIDODRINE HCL 10 MG TABLET PO SCH ×4 (08:41→21:30)
[2018-05-23] MEDS: AMIODARONE HCL 200 MG TABLET PO SCH (08:41)
[2018-05-23 09:12] LABS: PLATELET ESTIMATE NORMAL
[2018-05-23] MEDS ORDERED: DOCUSATE SODIUM 250MG CAPSULE PO SCH (09:30)
[2018-05-23] MEDS ORDERED: BISACODYL 10MG SUPP PR NR (12:15)
[2018-05-23] MEDS ORDERED: NA PHOS,M-B/NA PHOS,DI-BA ENEMA 118ML PR PRN (12:15)
[2018-05-23] MEDS: DOBUTAMINE HCL 500 MG in DEXT 5% WATER 210 ML IV SCH (12:48)
[2018-05-23] MEDS: CYCLOBENZAPRINE 10MG TABLET PO PRN (21:30)
[2018-05-23] MEDS: ATORVASTATIN CALCIUM 40MG TABLET PO SCH (21:31)
[2018-05-23] MEDS: TEMAZEPAM 15MG CAPSULE PO PRN (21:31)
[2018-05-24] VITALS (143 sets, daily range): BP systolic 41–176; BP diastolic 19–49
[2018-05-24] MEDS: DIPHENHYDRAMINE 50MG/ML VIAL IV PRN ×3 (00:02→21:36)
[2018-05-24] MEDS: METOCLOPRAMIDE HCL 10MG/2ML VIAL IV SCH ×4 (00:02→17:18)
[2018-05-24] MEDS: IPRATROPIUM/ALBUTEROL 0.5-3(2.5)MG/3ML NEB HHN SCH ×6 (00:17→21:24)
[2018-05-24 06:13] LABS: HEMATOCRIT. 26.8 % (42.0-52.0); HEMOGLOBIN. 8.5 g/dL (14.0-18.0); MEAN CORPUSCULAR HEMOGLOBIN 24.9 pg (28.0-32.0); MEAN CORPUSCULAR VOLUME 78.3 fL (80.0-94.0); MEAN PLATELET VOLUME 9.7 fl (7.4-10.4); PLATELET 155 x1000/uL (130-400); RED BLOOD CELL COUNT 3.42 mill/uL (4.7-6.1); RED CELL DISTRIBUTION WIDTH 24.1 % (11.6-14.6)
[2018-05-24] MEDS: DOBUTAMINE HCL 500 MG in DEXT 5% WATER 210 ML IV SCH ×2 (06:28→21:36)
[2018-05-24] MEDS: DOPAMINE 800MG PREMIX 250 ML IV SCH ×2 (08:20→20:44)
[2018-05-24] MEDS: SIMETHICONE 80MG TABLET CHEW PO SCH ×2 (09:19→17:19)
[2018-05-24] MEDS: CALCIUM ACETATE 667MG CAPSULE PO SCH ×3 (09:19→17:18)
[2018-05-24] MEDS: FOLIC ACID/VITAMIN B COMP W-C TABLET PO SCH (09:19)
[2018-05-24] MEDS: DOCUSATE SODIUM 250MG CAPSULE PO SCH ×2 (09:19→17:18)
[2018-05-24] MEDS: MIDODRINE HCL 10 MG TABLET PO SCH ×4 (09:20→21:17)
[2018-05-24] MEDS: ALLOPURINOL 100 MG TABLET PO SCH (09:20)
[2018-05-24] MEDS: IRON SUCROSE COMPLEX 100 MG/5 ML ML IV SCH (09:20)
[2018-05-24] MEDS: AMIODARONE HCL 200 MG TABLET PO SCH (09:20)
[2018-05-24] MEDS: FUROSEMIDE 100MG/10ML VIAL IVP SCH (09:21)
[2018-05-24] MEDS: PANTOPRAZOLE SODIUM 40 MG/VIAL IV SCH ×2 (09:21→21:18)
[2018-05-24] MEDS: METHYLPREDNISOLONE SOD SUCC 40 MG/ML VIAL IV SCH ×2 (09:21→21:16)
[2018-05-24 09:48] LABS: PLATELET ESTIMATE NORMAL
[2018-05-24] MEDS: CYCLOBENZAPRINE 10MG TABLET PO PRN ×2 (11:47→21:17)
[2018-05-24] MEDS: ASPIRIN 81MG EC TABLET PO SCH (12:03)
[2018-05-24] MEDS: GUAIFENESIN/CODEINE 100-10MG/5ML UDC PO PRN (17:38)
[2018-05-24] MEDS: ATORVASTATIN CALCIUM 40MG TABLET PO SCH (21:17)
[2018-05-25] VITALS (130 sets, daily range): BP systolic 64–136; BP diastolic 17–50
[2018-05-25] MEDS: IPRATROPIUM/ALBUTEROL 0.5-3(2.5)MG/3ML NEB HHN SCH ×6 (00:21→21:10)
[2018-05-25] MEDS: METOCLOPRAMIDE HCL 10MG/2ML VIAL IV SCH ×4 (00:24→18:09)
[2018-05-25 05:21] LABS: HEMATOCRIT 25.7 % (42.0-52.0); HEMOGLOBIN 8.1 g/dL (14.0-18.0); MEAN CORPUSCULAR HEMOGLOBIN 24.9 pg (28.0-32.0); MEAN CORPUSCULAR VOLUME 79.1 fL (80.0-94.0); PLATELET 138 x1000/uL (130-400); RED BLOOD CELL COUNT 3.25 mill/uL (4.7-6.1)
[2018-05-25 05:37] LABS: PHOSPHORUS 3.4 mg/dL (2.5-4.9)
[2018-05-25] MEDS: ALLOPURINOL 100 MG TABLET PO SCH (08:18)
[2018-05-25] MEDS: DOCUSATE SODIUM 250MG CAPSULE PO SCH ×2 (08:18→17:00)
[2018-05-25] MEDS: CALCIUM ACETATE 667MG CAPSULE PO SCH ×3 (08:18→18:10)
[2018-05-25] MEDS: METHYLPREDNISOLONE SOD SUCC 40 MG/ML VIAL IV SCH ×2 (08:19→21:25)
[2018-05-25] MEDS: ASPIRIN 81MG EC TABLET PO SCH (08:19)
[2018-05-25] MEDS: MIDODRINE HCL 10 MG TABLET PO SCH ×4 (08:19→21:06)
[2018-05-25] MEDS: AMIODARONE HCL 200 MG TABLET PO SCH (08:19)
[2018-05-25] MEDS: FOLIC ACID/VITAMIN B COMP W-C TABLET PO SCH (08:19)
[2018-05-25] MEDS: FUROSEMIDE 100MG/10ML VIAL IVP SCH (08:19)
[2018-05-25] MEDS: PANTOPRAZOLE SODIUM 40 MG/VIAL IV SCH ×2 (08:19→21:25)
[2018-05-25] MEDS: SIMETHICONE 80MG TABLET CHEW PO SCH ×2 (08:20→18:10)
[2018-05-25] MEDS: FAMOTIDINE 20MG/2ML VIAL IV PRN (09:42)
[2018-05-25] MEDS: LACTULOSE 20G/30ML UDC PO PRN (09:49)
[2018-05-25] MEDS: CYCLOBENZAPRINE 10MG TABLET PO PRN (11:46)
[2018-05-25] MEDS: DOBUTAMINE HCL 500 MG in DEXT 5% WATER 210 ML IV SCH (12:45)
[2018-05-25] MEDS: LIDOCAINE 5% PATCH TOP SCH (12:54)
[2018-05-25] MEDS ORDERED: TEMAZEPAM 15MG CAPSULE PO PRN (14:00)
[2018-05-25] MEDS: HYDROCODONE/APAP 7.5/325MG 1 TAB TABLET PO PRN (14:13)
[2018-05-25] MEDS: ATORVASTATIN CALCIUM 40MG TABLET PO SCH (21:06)
[2018-05-26] VITALS (100 sets, daily range): BP systolic 76–150; BP diastolic 17–101
[2018-05-26] MEDS: METOCLOPRAMIDE HCL 10MG/2ML VIAL IV SCH ×5 (00:43→23:20)
[2018-05-26] MEDS: IPRATROPIUM/ALBUTEROL 0.5-3(2.5)MG/3ML NEB HHN SCH ×4 (00:56→14:20)
[2018-05-26] MEDS: HYDROCODONE/APAP 7.5/325MG 1 TAB TABLET PO PRN ×5 (02:45→23:20)
[2018-05-26] MEDS: CYCLOBENZAPRINE 10MG TABLET PO PRN (03:05)
[2018-05-26] MEDS: DOPAMINE 800MG PREMIX 250 ML IV SCH (03:32)
[2018-05-26] MEDS: DOBUTAMINE HCL 500 MG in DEXT 5% WATER 210 ML IV SCH ×2 (06:27→08:28)
[2018-05-26] MEDS ORDERED: ACETAMINOPHEN 325MG TABLET PO PRN (08:00)
[2018-05-26] MEDS: DOCUSATE SODIUM 250MG CAPSULE PO SCH ×2 (08:55→18:40)
[2018-05-26] MEDS: MIDODRINE HCL 10 MG TABLET PO SCH ×4 (08:55→21:47)
[2018-05-26] MEDS: PANTOPRAZOLE SODIUM 40 MG/VIAL IV SCH ×2 (08:56→21:47)
[2018-05-26] MEDS: CALCIUM ACETATE 667MG CAPSULE PO SCH ×3 (08:56→18:40)
[2018-05-26] MEDS: ASPIRIN 81MG EC TABLET PO SCH (08:56)
[2018-05-26] MEDS: METHYLPREDNISOLONE SOD SUCC 40 MG/ML VIAL IV SCH (08:56)
[2018-05-26] MEDS: FOLIC ACID/VITAMIN B COMP W-C TABLET PO SCH (08:57)
[2018-05-26] MEDS: FUROSEMIDE 100MG/10ML VIAL IVP SCH (08:57)
[2018-05-26] MEDS: ALLOPURINOL 100 MG TABLET PO SCH (08:57)
[2018-05-26] MEDS: AMIODARONE HCL 200 MG TABLET PO SCH (08:57)
[2018-05-26] MEDS: FAMOTIDINE 20MG/2ML VIAL IV PRN (08:57)
[2018-05-26 09:25] LABS: HEMATOCRIT. 25.1 % (42.0-52.0); HEMOGLOBIN. 7.9 g/dL (14.0-18.0); MEAN CORPUSCULAR HEMOGLOBIN 25.3 pg (28.0-32.0); MEAN CORPUSCULAR VOLUME 80.2 fL (80.0-94.0); MEAN PLATELET VOLUME 9.1 fl (7.4-10.4); PLATELET 120 x1000/uL (130-400); RED BLOOD CELL COUNT 3.13 mill/uL (4.7-6.1); RED CELL DISTRIBUTION WIDTH 29.5 % (11.6-14.6)
[2018-05-26] MEDS: SIMETHICONE 80MG TABLET CHEW PO SCH ×2 (09:25→18:40)
[2018-05-26 09:51] LABS: CHLORIDE 107 mEq/L (98-107)
[2018-05-26 10:04] LABS: PLATELET ESTIMATE SLIGHTLY DECREASED
[2018-05-26] MEDS: LIDOCAINE 5% PATCH TOP SCH (13:13)
[2018-05-26] MEDS: FLUTICASONE/VILANTEROL 200-25 BLST.W.DEV ORI SCH (18:00)
[2018-05-26] MEDS: IPRATROPIUM/ALBUTEROL 0.5-3(2.5)MG/3ML NEB HHN PRN (18:29)
[2018-05-26] MEDS: PREDNISONE 20MG TABLET PO SCH (18:55)
[2018-05-26] MEDS: UMECLIDINIUM BROMIDE 1 INH BLST.W.DEV IH SCH (18:57)
[2018-05-26] MEDS: ATORVASTATIN CALCIUM 40MG TABLET PO SCH (21:46)
[2018-05-26] MEDS: DOBUTAMINE HCL IN DEXTROSE 5 % 250 ML IV SCH (22:25)
[2018-05-27] VITALS (59 sets, daily range): BP systolic 114–171; BP diastolic 35–75
[2018-05-27] MEDS: IPRATROPIUM/ALBUTEROL 0.5-3(2.5)MG/3ML NEB HHN PRN ×3 (00:29→12:46)
[2018-05-27] MEDS: METOCLOPRAMIDE HCL 10MG/2ML VIAL IV SCH ×3 (06:11→17:55)
[2018-05-27] MEDS: PANTOPRAZOLE SODIUM 40 MG/VIAL IV SCH ×2 (08:57→21:10)
[2018-05-27] MEDS: FUROSEMIDE 100MG/10ML VIAL IVP SCH (08:57)
[2018-05-27] MEDS: PREDNISONE 20MG TABLET PO SCH (08:57)
[2018-05-27] MEDS: FAMOTIDINE 20MG/2ML VIAL IV PRN (08:57)
[2018-05-27] MEDS: FOLIC ACID/VITAMIN B COMP W-C TABLET PO SCH (08:57)
[2018-05-27] MEDS: SIMETHICONE 80MG TABLET CHEW PO SCH ×2 (08:57→17:55)
[2018-05-27] MEDS: MIDODRINE HCL 10 MG TABLET PO SCH ×4 (08:58→21:10)
[2018-05-27] MEDS: ALLOPURINOL 100 MG TABLET PO SCH (08:58)
[2018-05-27] MEDS: DOCUSATE SODIUM 250MG CAPSULE PO SCH ×2 (08:58→17:56)
[2018-05-27] MEDS: ASPIRIN 81MG EC TABLET PO SCH (08:58)
[2018-05-27] MEDS: LIDOCAINE 5% PATCH TOP SCH (08:59)
[2018-05-27] MEDS: UMECLIDINIUM BROMIDE 1 INH BLST.W.DEV IH SCH (09:00)
[2018-05-27] MEDS: FLUTICASONE/VILANTEROL 200-25 BLST.W.DEV ORI SCH (09:00)
[2018-05-27] MEDS: CALCIUM ACETATE 667MG CAPSULE PO SCH ×3 (09:05→17:55)
[2018-05-27] MEDS: AMIODARONE HCL 200 MG TABLET PO SCH (09:05)
[2018-05-27] MEDS: DOBUTAMINE HCL IN DEXTROSE 5 % 250 ML IV SCH (15:40)
[2018-05-27] MEDS ORDERED: EPOETIN ALFA 4000UNITS/ML VIAL SUBCUT SCH (21:00)
[2018-05-27] MEDS: ATORVASTATIN CALCIUM 40MG TABLET PO SCH (21:10)
[2018-05-28] VITALS (18 sets, daily range): BP systolic 95–157; BP diastolic 34–71
[2018-05-28] MEDS: IPRATROPIUM/ALBUTEROL 0.5-3(2.5)MG/3ML NEB HHN PRN ×5 (00:29→20:52)
[2018-05-28] MEDS: METOCLOPRAMIDE HCL 10MG/2ML VIAL IV SCH ×4 (00:38→18:07)
[2018-05-28 07:41] LABS: HEMATOCRIT. 23.5 % (42.0-52.0); HEMOGLOBIN. 7.6 g/dL (14.0-18.0); MEAN CORPUSCULAR HEMOGLOBIN 25.5 pg (28.0-32.0); MEAN CORPUSCULAR VOLUME 78.9 fL (80.0-94.0); MEAN PLATELET VOLUME 9.2 fl (7.4-10.4); PLATELET 88 x1000/uL (130-400); RED BLOOD CELL COUNT 2.98 mill/uL (4.7-6.1); RED CELL DISTRIBUTION WIDTH 27.4 % (11.6-14.6)
[2018-05-28] MEDS: FLUTICASONE/VILANTEROL 200-25 BLST.W.DEV ORI SCH (09:00)
[2018-05-28] MEDS: UMECLIDINIUM BROMIDE 1 INH BLST.W.DEV IH SCH (09:00)
[2018-05-28] MEDS: CALCIUM ACETATE 667MG CAPSULE PO SCH ×3 (09:19→18:06)
[2018-05-28] MEDS: ALLOPURINOL 100 MG TABLET PO SCH (09:19)
[2018-05-28] MEDS: FAMOTIDINE 20MG/2ML VIAL IV PRN (09:20)
[2018-05-28] MEDS: ASPIRIN 81MG EC TABLET PO SCH (09:20)
[2018-05-28] MEDS: SIMETHICONE 80MG TABLET CHEW PO SCH ×2 (09:20→18:07)
[2018-05-28] MEDS: FOLIC ACID/VITAMIN B COMP W-C TABLET PO SCH (09:20)
[2018-05-28] MEDS: PANTOPRAZOLE SODIUM 40 MG/VIAL IV SCH ×2 (09:20→21:10)
[2018-05-28] MEDS: FUROSEMIDE 100MG/10ML VIAL IVP SCH (09:20)
[2018-05-28] MEDS: PREDNISONE 20MG TABLET PO SCH (09:20)
[2018-05-28] MEDS: AMIODARONE HCL 200 MG TABLET PO SCH (09:20)
[2018-05-28] MEDS: DOCUSATE SODIUM 250MG CAPSULE PO SCH ×2 (09:20→17:00)
[2018-05-28] MEDS: MIDODRINE HCL 10 MG TABLET PO SCH ×4 (10:42→21:10)
[2018-05-28] MEDS: DOBUTAMINE HCL IN DEXTROSE 5 % 250 ML IV SCH (12:30)
[2018-05-28 14:31] LABS: PLATELET ESTIMATE DECREASED
[2018-05-28] MEDS: ATORVASTATIN CALCIUM 40MG TABLET PO SCH (21:10)
[2018-05-28] MEDS: HYDROCODONE/APAP 7.5/325MG 1 TAB TABLET PO PRN (21:13)
[2018-05-28 22:41] LABS: CLARITY URINE TURBID (CLEAR); COLOR URINE RED (YELLOW); KETONES URINE TRACE (NEGATIVE); LEUKOCYTE ESTERASE URINE 3+ (NEGATIVE); NITRITE URINE POSITIVE (NEGATIVE); OCCULT BLOOD URINE 3+ (NEGATIVE); PH URINE 5.5 (4.5-8.0); PROTEIN URINE 3+ (NEGATIVE); SPECIFIC GRAVITY URINE 1.019 (1.005-1.030)
[2018-05-29] VITALS (24 sets, daily range): BP systolic 92–135; BP diastolic 41–73
[2018-05-29] MEDS: HYDROCODONE/APAP 7.5/325MG 1 TAB TABLET PO PRN ×2 (00:48→21:32)
[2018-05-29] MEDS: IPRATROPIUM/ALBUTEROL 0.5-3(2.5)MG/3ML NEB HHN PRN ×6 (00:58→21:51)
[2018-05-29] MEDS: METOCLOPRAMIDE HCL 10MG/2ML VIAL IV SCH ×5 (01:30→23:23)
[2018-05-29 07:11] LABS: INR 1.1; PARTIAL THROMBOPLASTIN TIME 20.4 sec (23.4-31.0)
[2018-05-29] MEDS: CALCIUM ACETATE 667MG CAPSULE PO SCH ×3 (07:20→17:23)
[2018-05-29 07:52] LABS: HEMOGLOBIN. 7.7 g/dL (14.0-18.0); MEAN CORPUSCULAR HEMOGLOBIN 25.8 pg (28.0-32.0); MEAN CORPUSCULAR VOLUME 79.8 fL (80.0-94.0); MEAN PLATELET VOLUME 9.4 fl (7.4-10.4); PLATELET 77 x1000/uL (130-400); RED CELL DISTRIBUTION WIDTH 26.9 % (11.6-14.6)
[2018-05-29] MEDS: UMECLIDINIUM BROMIDE 1 INH BLST.W.DEV IH SCH (09:00)
[2018-05-29] MEDS: DOCUSATE SODIUM 250MG CAPSULE PO SCH ×2 (09:00→17:00)
[2018-05-29] MEDS: PANTOPRAZOLE SODIUM 40 MG/VIAL IV SCH ×2 (09:03→21:31)
[2018-05-29] MEDS ORDERED: SODIUM BICARBONATE 4% (2.4MEQ) 5ML VIAL IV ONE (09:04)
[2018-05-29] MEDS: FUROSEMIDE 100MG/10ML VIAL IVP SCH (09:04)
[2018-05-29] MEDS: SIMETHICONE 80MG TABLET CHEW PO SCH ×2 (09:04→17:23)
[2018-05-29] MEDS: FAMOTIDINE 20MG/2ML VIAL IV PRN (09:04)
[2018-05-29] MEDS ORDERED: LIDOCAINE HCL 1% 20ML VIAL (Pyxis) INJ ONE ×2 (09:04→10:00)
[2018-05-29] MEDS: PREDNISONE 20MG TABLET PO SCH (09:05)
[2018-05-29] MEDS: DOBUTAMINE HCL IN DEXTROSE 5 % 250 ML IV SCH ×2 (09:05→23:58)
[2018-05-29] MEDS: ALLOPURINOL 100 MG TABLET PO SCH (09:05)
[2018-05-29] MEDS: MIDODRINE HCL 10 MG TABLET PO SCH ×4 (09:05→21:31)
[2018-05-29] MEDS: AMIODARONE HCL 200 MG TABLET PO SCH (09:05)
[2018-05-29] MEDS: FOLIC ACID/VITAMIN B COMP W-C TABLET PO SCH (09:06)
[2018-05-29] MEDS ORDERED: FENTANYL CITRATE/PF 50MCG/ML 2ML VIAL IV ONE (10:00)
[2018-05-29] MEDS ORDERED: MIDAZOLAM HCL 5 MG/5 ML VIAL IV ONE (10:00)
[2018-05-29] MEDS ORDERED: FENTANYL CITRATE/PF 50MCG/ML 2ML VIAL ONE (10:13)
[2018-05-29] MEDS ORDERED: MIDAZOLAM HCL 2 MG/2 ML VIAL ONE (10:18)
[2018-05-29] MEDS: LEVOFLOXACIN 500MG TABLET PO SCH (11:03)
[2018-05-29] MEDS: FLUTICASONE/VILANTEROL 200-25 BLST.W.DEV ORI SCH (11:16)
[2018-05-29 12:13] LABS: NUCLEATED RED BLOOD CELLS 1 /100 WBC
[2018-05-29 12:14] LABS: PLATELET ESTIMATE DECREASED
[2018-05-29] MEDS: ATORVASTATIN CALCIUM 40MG TABLET PO SCH (21:31)
[2018-05-29] MEDS: EPOETIN ALFA 4000UNITS/ML VIAL SUBCUT SCH (21:31)
[2018-05-30] VITALS (12 sets, daily range): BP systolic 96–145; BP diastolic 46–75
[2018-05-30] MEDS: IPRATROPIUM/ALBUTEROL 0.5-3(2.5)MG/3ML NEB HHN PRN ×6 (01:57→21:05)
[2018-05-30 06:50] LABS: MEAN CORPUSCULAR HEMOGLOBIN 25.5 pg (28.0-32.0); MEAN CORPUSCULAR VOLUME 79.7 fL (80.0-94.0); RED BLOOD CELL COUNT 3.13 mill/uL (4.7-6.1); RED CELL DISTRIBUTION WIDTH 27.2 % (11.6-14.6)
[2018-05-30 07:36] LABS: NUCLEATED RED BLOOD CELLS 5 /100 WBC
[2018-05-30 07:37] LABS: PLATELET ESTIMATE DECREASED
[2018-05-30 07:39] LABS: PLATELET 65 x1000/uL (130-400)
[2018-05-30 07:40] LABS: MEAN PLATELET VOLUME 9.1 fl (7.4-10.4)
[2018-05-30] MEDS: FOLIC ACID/VITAMIN B COMP W-C TABLET PO SCH (08:42)
[2018-05-30] MEDS: PANTOPRAZOLE SODIUM 40 MG/VIAL IV SCH ×2 (08:42→21:42)
[2018-05-30] MEDS: MIDODRINE HCL 10 MG TABLET PO SCH ×4 (08:42→21:42)
[2018-05-30] MEDS: SIMETHICONE 80MG TABLET CHEW PO SCH ×2 (08:42→17:09)
[2018-05-30] MEDS: CALCIUM ACETATE 667MG CAPSULE PO SCH ×3 (08:43→17:09)
[2018-05-30] MEDS: ALLOPURINOL 100 MG TABLET PO SCH (08:43)
[2018-05-30] MEDS: PREDNISONE 20MG TABLET PO SCH (08:43)
[2018-05-30] MEDS: FUROSEMIDE 100MG/10ML VIAL IVP SCH (08:43)
[2018-05-30] MEDS: DOCUSATE SODIUM 250MG CAPSULE PO SCH ×2 (08:43→16:44)
[2018-05-30] MEDS: METOCLOPRAMIDE HCL 10MG/2ML VIAL IV SCH ×4 (08:43→23:48)
[2018-05-30] MEDS: FLUTICASONE/VILANTEROL 200-25 BLST.W.DEV ORI SCH (08:44)
[2018-05-30] MEDS: UMECLIDINIUM BROMIDE 1 INH BLST.W.DEV IH SCH (08:44)
[2018-05-30] MEDS: HEPARIN SODIUM 1,000 UNIT/1ML VIAL IV NR ×2 (10:51→11:17)
[2018-05-30] MEDS: DOBUTAMINE HCL IN DEXTROSE 5 % 250 ML IV SCH (17:08)
[2018-05-31] VITALS (16 sets, daily range): BP systolic 99–132; BP diastolic 52–86
[2018-05-31] MEDS: METOCLOPRAMIDE HCL 10MG/2ML VIAL IV SCH ×4 (05:56→23:02)
[2018-05-31] MEDS: DOBUTAMINE HCL IN DEXTROSE 5 % 250 ML IV SCH (06:19)
[2018-05-31] MEDS: UMECLIDINIUM BROMIDE 1 INH BLST.W.DEV IH SCH (09:02)
[2018-05-31] MEDS: FLUTICASONE/VILANTEROL 200-25 BLST.W.DEV ORI SCH (09:02)
[2018-05-31] MEDS: FUROSEMIDE 100MG/10ML VIAL IVP SCH (09:03)
[2018-05-31] MEDS: PANTOPRAZOLE SODIUM 40 MG/VIAL IV SCH ×2 (09:06→21:26)
[2018-05-31] MEDS: FAMOTIDINE 20MG/2ML VIAL IV PRN (09:06)
[2018-05-31] MEDS: SIMETHICONE 80MG TABLET CHEW PO SCH ×2 (09:07→18:21)
[2018-05-31] MEDS: PREDNISONE 20MG TABLET PO SCH (09:07)
[2018-05-31] MEDS: MIDODRINE HCL 10 MG TABLET PO SCH ×4 (09:07→21:26)
[2018-05-31] MEDS: ALLOPURINOL 100 MG TABLET PO SCH (09:07)
[2018-05-31] MEDS: DOCUSATE SODIUM 250MG CAPSULE PO SCH ×2 (09:07→17:00)
[2018-05-31] MEDS: FOLIC ACID/VITAMIN B COMP W-C TABLET PO SCH (09:07)
[2018-05-31] MEDS: CALCIUM ACETATE 667MG CAPSULE PO SCH ×3 (09:21→18:22)
[2018-05-31 09:22] LABS: HEMATOCRIT. 26.4 % (42.0-52.0); HEMOGLOBIN. 8.3 g/dL (14.0-18.0); MEAN CORPUSCULAR HEMOGLOBIN 25.2 pg (28.0-32.0); MEAN CORPUSCULAR VOLUME 79.9 fL (80.0-94.0); RED CELL DISTRIBUTION WIDTH 26.4 % (11.6-14.6)
[2018-05-31 10:20] LABS: PLATELET 57 x1000/uL (130-400)
[2018-05-31 10:23] LABS: NUCLEATED RED BLOOD CELLS 6 /100 WBC; PLATELET ESTIMATE DECREASED
[2018-05-31] MEDS: LEVOFLOXACIN 500MG TABLET PO SCH (12:27)
[2018-05-31] MEDS: IPRATROPIUM/ALBUTEROL 0.5-3(2.5)MG/3ML NEB HHN PRN (20:30)
[2018-05-31] MEDS: EPOETIN ALFA 4000UNITS/ML VIAL SUBCUT SCH (21:26)
[2018-06-01] VITALS (14 sets, daily range): BP systolic 89–118; BP diastolic 47–88
[2018-06-01] MEDS: DOBUTAMINE HCL IN DEXTROSE 5 % 250 ML IV SCH (00:24)
[2018-06-01] MEDS: METOCLOPRAMIDE HCL 10MG/2ML VIAL IV SCH ×4 (05:39→23:31)
[2018-06-01] MEDS: FLUTICASONE/VILANTEROL 200-25 BLST.W.DEV ORI SCH (08:35)
[2018-06-01] MEDS: UMECLIDINIUM BROMIDE 1 INH BLST.W.DEV IH SCH (08:35)
[2018-06-01] MEDS: FUROSEMIDE 100MG/10ML VIAL IVP SCH (08:36)
[2018-06-01] MEDS: PANTOPRAZOLE SODIUM 40 MG/VIAL IV SCH ×2 (08:37→21:25)
[2018-06-01] MEDS: FAMOTIDINE 20MG/2ML VIAL IV PRN (08:41)
[2018-06-01] MEDS: SIMETHICONE 80MG TABLET CHEW PO SCH ×2 (08:42→17:10)
[2018-06-01] MEDS: DOCUSATE SODIUM 250MG CAPSULE PO SCH ×2 (08:42→17:00)
[2018-06-01] MEDS: CALCIUM ACETATE 667MG CAPSULE PO SCH ×3 (08:42→17:11)
[2018-06-01] MEDS: MIDODRINE HCL 10 MG TABLET PO SCH ×4 (08:42→21:25)
[2018-06-01] MEDS: PREDNISONE 20MG TABLET PO SCH (08:42)
[2018-06-01] MEDS: FOLIC ACID/VITAMIN B COMP W-C TABLET PO SCH (08:42)
[2018-06-02] VITALS (9 sets, daily range): BP systolic 93–132; BP diastolic 49–103
[2018-06-02] MEDS: METOCLOPRAMIDE HCL 10MG/2ML VIAL IV SCH (05:46)
[2018-06-02 07:59] LABS: HEMOGLOBIN. 9.1 g/dL (14.0-18.0); MEAN CORPUSCULAR HEMOGLOBIN 25.4 pg (28.0-32.0); MEAN CORPUSCULAR VOLUME 81.1 fL (80.0-94.0); MEAN PLATELET VOLUME 9.3 fl (7.4-10.4); PLATELET 55 x1000/uL (130-400); RED BLOOD CELL COUNT 3.57 mill/uL (4.7-6.1)
[2018-06-02] MEDS: FLUTICASONE/VILANTEROL 200-25 BLST.W.DEV ORI SCH (09:00)
[2018-06-02] MEDS: DOCUSATE SODIUM 250MG CAPSULE PO SCH (09:00)
[2018-06-02] MEDS: FUROSEMIDE 100MG/10ML VIAL IVP SCH (09:00)
[2018-06-02] MEDS: UMECLIDINIUM BROMIDE 1 INH BLST.W.DEV IH SCH (09:00)
[2018-06-02] MEDS: CALCIUM ACETATE 667MG CAPSULE PO SCH (09:51)
[2018-06-02] MEDS: FOLIC ACID/VITAMIN B COMP W-C TABLET PO SCH (09:51)
[2018-06-02] MEDS: PREDNISONE 20MG TABLET PO SCH (09:51)
[2018-06-02] MEDS: MIDODRINE HCL 10 MG TABLET PO SCH (09:51)
[2018-06-02] MEDS: SIMETHICONE 80MG TABLET CHEW PO SCH (09:52)
[2018-06-02] MEDS: PANTOPRAZOLE SODIUM 40 MG/VIAL IV SCH (09:52)
[2018-06-02 14:12] LABS: NUCLEATED RED BLOOD CELLS 8 /100 WBC; PLATELET ESTIMATE MARKEDLY DECREASED
== END 2018-06-02 16:50 | DRG 673 ==
LOC: 3WST 15:47 → CVICU 05-11 20:24 → 3WST 05-27 22:05
PROVIDERS: ADMIT Internal Medicine Pulmonary Disease; ATTEND Internal Medicine Pulmonary Disease
PROC: 5A09357 Assistance with Respiratory Ventilation, Less than 24 Consecutive Hours, Continuous Positive Airway Pressure (ICD-10-PCS; 2018-05-02)
PROC: 5A09357 Assistance with Respiratory Ventilation, Less than 24 Consecutive Hours, Continuous Positive Airway Pressure (ICD-10-PCS; 2018-05-03)
PROC: 5A09357 Assistance with Respiratory Ventilation, Less than 24 Consecutive Hours, Continuous Positive Airway Pressure (ICD-10-PCS; 2018-05-04)
PROC: 5A09357 Assistance with Respiratory Ventilation, Less than 24 Consecutive Hours, Continuous Positive Airway Pressure (ICD-10-PCS; 2018-05-05)
PROC: 5A09357 Assistance with Respiratory Ventilation, Less than 24 Consecutive Hours, Continuous Positive Airway Pressure (ICD-10-PCS; 2018-05-06)
PROC: 5A09357 Assistance with Respiratory Ventilation, Less than 24 Consecutive Hours, Continuous Positive Airway Pressure (ICD-10-PCS; 2018-05-07)
PROC: 5A09357 Assistance with Respiratory Ventilation, Less than 24 Consecutive Hours, Continuous Positive Airway Pressure (ICD-10-PCS; 2018-05-08)
PROC: 5A09357 Assistance with Respiratory Ventilation, Less than 24 Consecutive Hours, Continuous Positive Airway Pressure (ICD-10-PCS; 2018-05-09)
PROC: 02HV33Z Insertion of Infusion Device into Superior Vena Cava, Percutaneous Approach (ICD-10-PCS; 2018-05-10)
PROC: B548ZZA Ultrasonography of Superior Vena Cava, Guidance (ICD-10-PCS; 2018-05-10)
PROC: 02HV33Z Insertion of Infusion Device into Superior Vena Cava, Percutaneous Approach (ICD-10-PCS; 2018-05-10)
PROC: B5181ZA Fluoroscopy of Superior Vena Cava using Low Osmolar Contrast, Guidance (ICD-10-PCS; 2018-05-10)
PROC: B548ZZA Ultrasonography of Superior Vena Cava, Guidance (ICD-10-PCS; 2018-05-10)
PROC: 5A1D70Z Performance of Urinary Filtration, Intermittent, Less than 6 Hours Per Day (ICD-10-PCS; 2018-05-10)
PROC: 5A09357 Assistance with Respiratory Ventilation, Less than 24 Consecutive Hours, Continuous Positive Airway Pressure (ICD-10-PCS; 2018-05-10)
PROC: 5A1D70Z Performance of Urinary Filtration, Intermittent, Less than 6 Hours Per Day (ICD-10-PCS; 2018-05-11)
PROC: 5A09357 Assistance with Respiratory Ventilation, Less than 24 Consecutive Hours, Continuous Positive Airway Pressure (ICD-10-PCS; 2018-05-11)
PROC: 5A1D70Z Performance of Urinary Filtration, Intermittent, Less than 6 Hours Per Day (ICD-10-PCS; 2018-05-13)
PROC: 5A1D70Z Performance of Urinary Filtration, Intermittent, Less than 6 Hours Per Day (ICD-10-PCS; 2018-05-15)
PROC: 5A1D70Z Performance of Urinary Filtration, Intermittent, Less than 6 Hours Per Day (ICD-10-PCS; 2018-05-17)
PROC: 5A09357 Assistance with Respiratory Ventilation, Less than 24 Consecutive Hours, Continuous Positive Airway Pressure (ICD-10-PCS; 2018-05-17)
PROC: 30233N1 Transfusion of Nonautologous Red Blood Cells into Peripheral Vein, Percutaneous Approach (ICD-10-PCS; 2018-05-19)
PROC: 5A1D70Z Performance of Urinary Filtration, Intermittent, Less than 6 Hours Per Day (ICD-10-PCS; 2018-05-19)
PROC: 5A09357 Assistance with Respiratory Ventilation, Less than 24 Consecutive Hours, Continuous Positive Airway Pressure (ICD-10-PCS; 2018-05-20)
PROC: 5A09357 Assistance with Respiratory Ventilation, Less than 24 Consecutive Hours, Continuous Positive Airway Pressure (ICD-10-PCS; 2018-05-21)
PROC: 0DB68ZX Excision of Stomach, Via Natural or Artificial Opening Endoscopic, Diagnostic (ICD-10-PCS; principal; 2018-05-21 11:30)
PROC: 5A1D70Z Performance of Urinary Filtration, Intermittent, Less than 6 Hours Per Day (ICD-10-PCS; 2018-05-22)
PROC: 5A09357 Assistance with Respiratory Ventilation, Less than 24 Consecutive Hours, Continuous Positive Airway Pressure (ICD-10-PCS; 2018-05-22)
PROC: 5A1D70Z Performance of Urinary Filtration, Intermittent, Less than 6 Hours Per Day (ICD-10-PCS; 2018-05-23)
PROC: 5A09357 Assistance with Respiratory Ventilation, Less than 24 Consecutive Hours, Continuous Positive Airway Pressure (ICD-10-PCS; 2018-05-23)
PROC: 5A09357 Assistance with Respiratory Ventilation, Less than 24 Consecutive Hours, Continuous Positive Airway Pressure (ICD-10-PCS; 2018-05-24)
PROC: 5A1D70Z Performance of Urinary Filtration, Intermittent, Less than 6 Hours Per Day (ICD-10-PCS; 2018-05-25)
PROC: 5A09357 Assistance with Respiratory Ventilation, Less than 24 Consecutive Hours, Continuous Positive Airway Pressure (ICD-10-PCS; 2018-05-25)
PROC: 5A1D70Z Performance of Urinary Filtration, Intermittent, Less than 6 Hours Per Day (ICD-10-PCS; 2018-05-26)
PROC: 5A09357 Assistance with Respiratory Ventilation, Less than 24 Consecutive Hours, Continuous Positive Airway Pressure (ICD-10-PCS; 2018-05-26)
PROC: 5A1D70Z Performance of Urinary Filtration, Intermittent, Less than 6 Hours Per Day (ICD-10-PCS; 2018-05-27)
PROC: 5A1D70Z Performance of Urinary Filtration, Intermittent, Less than 6 Hours Per Day (ICD-10-PCS; 2018-05-27)
PROC: 5A09357 Assistance with Respiratory Ventilation, Less than 24 Consecutive Hours, Continuous Positive Airway Pressure (ICD-10-PCS; 2018-05-27)
PROC: 5A09357 Assistance with Respiratory Ventilation, Less than 24 Consecutive Hours, Continuous Positive Airway Pressure (ICD-10-PCS; 2018-05-28)
PROC: 0JH63XZ Insertion of Tunneled Vascular Access Device into Chest Subcutaneous Tissue and Fascia, Percutaneous Approach (ICD-10-PCS; 2018-05-29)
PROC: 02HV33Z Insertion of Infusion Device into Superior Vena Cava, Percutaneous Approach (ICD-10-PCS; 2018-05-29)
PROC: B5181ZA Fluoroscopy of Superior Vena Cava using Low Osmolar Contrast, Guidance (ICD-10-PCS; 2018-05-29)
PROC: 5A1D70Z Performance of Urinary Filtration, Intermittent, Less than 6 Hours Per Day (ICD-10-PCS; 2018-05-29)
PROC: 5A09357 Assistance with Respiratory Ventilation, Less than 24 Consecutive Hours, Continuous Positive Airway Pressure (ICD-10-PCS; 2018-05-29)
PROC: 5A09357 Assistance with Respiratory Ventilation, Less than 24 Consecutive Hours, Continuous Positive Airway Pressure (ICD-10-PCS; 2018-05-30)
PROC: 5A09357 Assistance with Respiratory Ventilation, Less than 24 Consecutive Hours, Continuous Positive Airway Pressure (ICD-10-PCS; 2018-05-31)
PROC: 5A1D70Z Performance of Urinary Filtration, Intermittent, Less than 6 Hours Per Day (ICD-10-PCS; 2018-06-01)
PROC: 5A09357 Assistance with Respiratory Ventilation, Less than 24 Consecutive Hours, Continuous Positive Airway Pressure (ICD-10-PCS; 2018-06-01)
PROC: 5A09357 Assistance with Respiratory Ventilation, Less than 24 Consecutive Hours, Continuous Positive Airway Pressure (ICD-10-PCS; 2018-06-01)
PROC: 5A09357 Assistance with Respiratory Ventilation, Less than 24 Consecutive Hours, Continuous Positive Airway Pressure (ICD-10-PCS; 2018-06-02)
DX: N17.0 Acute kidney failure with tubular necrosis (principal); I50.23 Acute on chronic systolic (congestive) heart failure; J96.21 Acute and chronic respiratory failure with hypoxia; K29.61 Other gastritis with bleeding; I13.0 Hypertensive heart and chronic kidney disease with heart failure and stage 1 through stage 4 chronic kidney disease, or unspecified chronic kidney disease; J44.1 Chronic obstructive pulmonary disease with (acute) exacerbation; I48.92 Unspecified atrial flutter; E87.1 Hypo-osmolality and hyponatremia; N39.0 Urinary tract infection, site not specified; I13.2 Hypertensive heart and chronic kidney disease with heart failure and with stage 5 chronic kidney disease, or end stage renal disease; N18.3 Chronic kidney disease, stage 3 (moderate); G47.33 Obstructive sleep apnea (adult) (pediatric); I73.9 Peripheral vascular disease, unspecified; I25.10 Atherosclerotic heart disease of native coronary artery without angina pectoris; I48.2 Chronic atrial fibrillation; J02.9 Acute pharyngitis, unspecified; D69.6 Thrombocytopenia, unspecified; M48.02 Spinal stenosis, cervical region; M48.061 Spinal stenosis, lumbar region without neurogenic claudication; I25.5 Ischemic cardiomyopathy; Z16.12 Extended spectrum beta lactamase (ESBL) resistance; T50.2X5A Adverse effect of carbonic-anhydrase inhibitors, benzothiadiazides and other diuretics, initial encounter; T46.0X5A Adverse effect of cardiac-stimulant glycosides and drugs of similar action, initial encounter; N28.1 Cyst of kidney, acquired; M47.816 Spondylosis without myelopathy or radiculopathy, lumbar region; M47.812 Spondylosis without myelopathy or radiculopathy, cervical region; M10.9 Gout, unspecified; K59.00 Constipation, unspecified; K31.89 Other diseases of stomach and duodenum; K05.10 Chronic gingivitis, plaque induced; K04.7 Periapical abscess without sinus; K03.81 Cracked tooth; K02.9 Dental caries, unspecified; I95.89 Other hypotension; M27.49 Other cysts of jaw; I48.0 Paroxysmal atrial fibrillation; G89.4 Chronic pain syndrome; G47.00 Insomnia, unspecified; E87.5 Hyperkalemia; E78.5 Hyperlipidemia, unspecified; E66.01 Morbid (severe) obesity due to excess calories; D50.9 Iron deficiency anemia, unspecified; B96.89 Other specified bacterial agents as the cause of diseases classified elsewhere; B96.1 Klebsiella pneumoniae [K. pneumoniae] as the cause of diseases classified elsewhere; Z99.2 Dependence on renal dialysis; Z95.810 Presence of automatic (implantable) cardiac defibrillator; Z95.5 Presence of coronary angioplasty implant and graft; Z87.891 Personal history of nicotine dependence; Z82.49 Family history of ischemic heart disease and other diseases of the circulatory system; Z79.01 Long term (current) use of anticoagulants; I25.2 Old myocardial infarction; Y92.89 Other specified places as the place of occurrence of the external cause; Z68.34 Body mass index [BMI] 34.0-34.9, adult
CPT/HCPCS: 36415; 36556; 36558; 36569; 36589; 36600; 70450; 70486; 71045; 72125; 72128; 72131; 74018; 76770; 76937; 77001; 80048; 80053; 80076; 80162; 81003; 82043; 82270; 82375; 82533; 82550; 82565; 82570; 82607; 82728; 82746; 82805; 83036; 83540; 83550; 83735; 83970; 84100; 84300; 84439; 84443; 84481; 84484; 84550; 85014; 85018; 85025; 85027; 85610; 85730; 86803; 86850; 86900; 86920; 87070; 87077; 87086; 87186; 87340; 88305; 88312; 88313; 92523; 93005; 93306; 93970; 93971; 94640; 94660; 97110; 97162; 97164; 97166; 97168; 97530; 99152; 99153; A4216; A6261; C1725; C1750; C1752; C1769; C9113; J0295; J0885; J1200; J1250; J1265; J1642; J1644; J1940; J2250; J2270; J2405; J2765; J2920; J2930; J3010; J3490; J7030; J7040; J7050; J7060; J7512; J7611; J7620; P9016; P9047; Q0162